=== PATIENT | female | born 1975 | race Caucasian/White ===

== ENCOUNTER 2017-03-20 02:41 | Inpatient (IN) | payer BC ==
--- NOTE | 2017-03-20 03:49 | PDOC ---
History of Present Illness - General History Source: Patient Exam Limitations: No Limitations - History of Present Illness Initial Comments: 03/20/17 04:38 The patient is a 42 year old female, with significant past medical history of cholecystectomy, who presents today complaining of fever, diarrhea, nausea, and vomiting x4 days. The patient states that the nausea and vomiting began on Tuesday, 4 days ago. She had multiple episodes of vomiting on Tuesday, which subsided on . She also reports multiple episodes of diarrhea accompanied by lower abdominal cramping. Her temperature was 103.5 prior to arrival to the emergency room. Denies hemoptysis. Denies urinary changes. Denies flank pain. Allergies:none reported Surgical Hx: cholecystectomy PCP- Dr. Delbert Galvan <Deirdre Campos - Last Filed: 03/20/17 04:38> <Marilyn Guthrie - Last Filed: 03/20/17 07:03> <Analia Antony - Last Filed: 03/20/17 11:32> - General Stated Complaint: ABDOMINAL PAIN Time Seen by Provider: 03/20/17 03:35 Past History <Deirdre Campos - Last Filed: 03/20/17 04:38> - Past Medical History Asthma: No Cancer: No Cardiac Disorders: No Diabetes: No HTN: No Seizures: No Thyroid Disease: No - Surgical History Cholecystectomy: Yes ('09) - Psycho/Social/Smoking Cessation Hx Anxiety: No Suicidal Ideation: No Smoking Status: No Smoking History: Never smoked Have you smoked in the past 12 months: No Number of Cigarettes Smoked Daily: 0 Hx Alcohol Use: No Drug/Substance Use Hx: No Substance Use Type: None Hx Substance Use Treatment: No <Marilyn Guthrie - Last Filed: 03/20/17 07:03> <Analia Antony - Last Filed: 03/20/17 11:32> - Past Medical History Allergies/Adverse Reactions: Allergies Allergy/AdvReac Type Severity Reaction Status Date / Time No Known Allergies Allergy Verified 03/20/17 03:50 Home Medications: Ambulatory Orders Omeprazole Magnesium [Prilosec (OTC)] 20 mg PO DAILY 11/13/14 Vit/Iron Fumarate/FA [ Tablet] 1 each PO DAILY 11/13/14 Review of Systems - Review of Systems Able to Perform ROS?: Yes Comments:: 03/20/17 04:39 GENERAL/CONSTITUTIONAL: +fever. No chills. No weakness. HEAD, EYES, EARS, NOSE AND THROAT: No change in vision. No ear pain or discharge. No sore throat. CARDIOVASCULAR: No chest pain or shortness of breath. RESPIRATORY: No cough, wheezing, or hemoptysis. GASTROINTESTINAL: +nausea, vomiting, lower abdominal cramping. GENITOURINARY: No dysuria, frequency, or change in urination. MUSCULOSKELETAL: No joint or muscle swelling or pain. No neck or back pain. SKIN: No rash NEUROLOGIC: No headache, vertigo, loss of consciousness, or change in strength/ sensation. ENDOCRINE: No increased thirst. No abnormal weight change. HEMATOLOGIC/LYMPHATIC: No anemia, easy bleeding, or history of blood clots. ALLERGIC/IMMUNOLOGIC: No hives or skin allergy. <Deirdre Campos - Last Filed: 03/20/17 04:38> *Physical Exam - Vital Signs Last Vital Signs Temp Pulse Resp BP Pulse Ox 99.8 F H 123 H 16 109/66 97 03/20/17 03:50 03/20/17 03:50 03/20/17 03:50 03/20/17 03:50 03/20/17 03:50 - Physical Exam Comments: 03/20/17 04:39 GENERAL: Awake, alert, and fully oriented, in no acute distress HEAD: No signs of trauma EYES: PERRLA, EOMI, sclera anicteric, conjunctiva clear ENT: Auricles normal inspection, hearing grossly normal, nares patent, oropharynx clear without exudates. Dry mucosa NECK: Normal ROM, supple, no lymphadenopathy, JVD, or masses LUNGS: Breath sounds equal, clear to auscultation bilaterally. No wheezes, and no crackles HEART: Regular rate and rhythm, normal S1 and S2, no murmurs, rubs or gallops ABDOMEN: Soft, nontender, normoactive bowel sounds. No guarding, no rebound. No masses EXTREMITIES: Normal range of motion, no edema. No clubbing or cyanosis. No cords, erythema, or tenderness NEUROLOGICAL: Cranial nerves II through XII grossly intact. Normal speech, normal gait SKIN: Warm, Dry, normal turgor, no rashes or lesions noted. <Deirdre Campos - Last Filed: 03/20/17 04:38> - Vital Signs Last Vital Signs Temp Pulse Resp BP Pulse Ox 99.8 F H 123 H 16 109/66 97 03/20/17 03:50 03/20/17 03:50 03/20/17 03:50 03/20/17 03:50 03/20/17 03:50 <Analia Antony - Last Filed: 03/20/17 11:32> ED Treatment Course - LABORATORY CBC & Chemistry Diagram: 03/20/17 04:57 03/20/17 04:57 <Marilyn Guthrie - Last Filed: 03/20/17 07:03> - LABORATORY CBC & Chemistry Diagram: 03/20/17 04:57 03/20/17 04:57 - ADDITIONAL ORDERS Additional order review: Laboratory Results 03/20/17 03/20/17 03/20/17 07:05 04:57 04:57 Sodium 140 Potassium 3.5 Chloride 104 Carbon Dioxide 24 Anion Gap 12 BUN 9 D Creatinine 0.8 D Creat Clearance w eGFR > 60 Random Glucose 121 H Calcium 8.2 L Total Bilirubin 0.5 D AST 20 D ALT 31 D Alkaline Phosphatase 121 H D Total Protein 7.3 D Albumin 3.2 L D Total Amylase 46 Lipase 104 Urine Color Ltyellow Urine Appearance Slcloudy Urine pH 7.0 Urine Protein 1+ H Urine Glucose (UA) Negative Urine Ketones Negative Urine Blood 3+ H Urine Nitrite Negative Urine Bilirubin Negative Urine Urobilinogen Negative Ur Leukocyte Esterase 2+ H D Urine RBC 10 Urine WBC 19 Ur Epithelial Cells Few Urine Bacteria Few Urine HCG, Qual Negative 03/20/17 04:57 RBC 4.64 D MCV 82.6 MCHC 32.3 RDW 13.7 MPV 8.8 Neutrophils % 85.1 H Lymphocytes % 8.7 D Monocytes % 5.5 Eosinophils % 0.2 D Basophils % 0.5 <Analia Antony - Last Filed: 03/20/17 11:32> Medical Decision Making - Medical Decision Making 03/20/17 07:03 Pt comes with vomiting and diarrhea on Tue and . She states that she had a large BM on Tue and since then she has been constipated and she has abdominal pain. Pt comes to the ER with a fever. She will have labs and CT scan and UA. Pt states that due to her vomiting, she has been unable to take her OCPs and so she has some vaginal spotting, but states that she is not . Urine HCG is pending. Once urine preg test is back, pt can go to CT scan. She likely has colitis. She will require Levaquin, but that too will be started once her preg test is back. <Marilyn Guthrie - Last Filed: 03/20/17 07:03> - Medical Decision Making 03/20/17 09:05 CT results reviewed, discussed with patient. She agrees to inpatient admission for management of diverticulitis with abscess. She requests Dr. Doll's group for surgery consultation. I have ordered levaquin and flagyl, IVF. I will keep her NPO pending surgical evaluation. Her fever has returned, and she also c/o of headache. I will give IV tylenol. I answered questions for her and her in terms of management and plan. I explained that surgery will give more definitive plan. For now it is NPO with IV abx and fever management. 03/20/17 09:34 Case d/w Dr. Renee, covering Dr. Doll for surgery. Will evaluate. <Analia Antony - Last Filed: 03/20/17 11:32> *DC/Admit/Observation/Transfer - Attestations Scribe Attestion: 03/20/17 04:40 Documentation prepared by ELYSSA Alex, acting as director global medical affairs for Marilyn Guthrie MD. <Deirdre Campos - Last Filed: 03/20/17 04:38> <Marilyn Guthrie - Last Filed: 03/20/17 07:03> - Discharge Dispostion Admit: Yes <Analia Antony - Last Filed: 03/20/17 11:32> Diagnosis at time of Disposition: Diverticulitis of intestine with abscess Qualifiers: Diverticulitis site: large intestine Diverticulitis bleeding: without bleeding Qualified Code(s): K57.20 - Diverticulitis of large intestine with perforation and abscess without bleeding - Discharge Dispostion Condition at time of disposition: Guarded - Referrals
[2017-03-20 05:04] LABS: BASOPHIL 0.5 % (0-2.0); EOSINOPHIL 0.2 % (0-4.5); MCH 26.7 pg (25.7-33.7); MCHC 32.3 g/dl (32.0-36.0); MEAN CELL VOLUME 82.6 fl (80-96); MEAN PLT VOLUME 8.8 fl (7.5-11.1); NEUTROPHILS 85.1 % (42.8-82.8); PLATELET COUNT 290 K/MM3 (134-434); RDW 13.7 % (11.6-15.6); WHITE BLOOD COUNT 14.9 K/mm3 (4.0-10.0)
[2017-03-20 05:05] LABS: URINE APPEARANCE SLCLOUDY; URINE BILIRUBIN NEGATIVE (NEGATIVE); URINE COLOR LTYELLOW; URINE GLUCOSE (UA) NEGATIVE (NEGATIVE); URINE KETONE NEGATIVE (NEGATIVE); URINE NITRITE NEGATIVE (NEGATIVE); URINE UROBILINOGEN NEGATIVE E.U./dl (0.2-1.0)
[2017-03-20 05:06] LABS: URINE BLOOD 3+ (NEGATIVE); URINE LEUK ESTERASE 2+ (NEGATIVE); URINE PROTEIN 1+ (NEGATIVE)
[2017-03-20 05:23] LABS: URINE BACTERIA FEW /hpf (NONE SEEN); URINE RBC 10 /hpf (0-3); URINE WBC 19 /hpf (3-5)
[2017-03-20 06:28] LABS: GLUCOSE,RANDOM 121 mg/dL (74-106)
[2017-03-20 06:29] LABS: ANION GAP 12 (8-16); CALCIUM 8.2 mg/dL (8.5-10.1); CO2 24 mmol/L (21-32); CREATININE 0.8 mg/dL (0.55-1.02)
[2017-03-20 06:30] LABS: ALBUMIN 3.2 g/dl (3.4-5.0); ALK PHOS 121 U/L (45-117); BILIRUBIN,TOTAL 0.5 mg/dL (0.2-1.0); SGOT/AST 20 U/L (15-37); SGPT/ALT 31 U/L (12-78); TOT PROT 7.3 g/dl (6.4-8.2)
[2017-03-20 06:31] LABS: AMYLASE 46 U/L (25-115)
[2017-03-20] MEDS ORDERED: METRONIDAZOLE 500 MG PREMIXED 100 ML IVPB ONE ×2 (09:05→09:19)
[2017-03-20] MEDS ORDERED: LEVOFLOXACIN 750 MG IVPB 150 ML IVPB ONE ×2 (09:19→09:20)
[2017-03-20] MEDS ORDERED: ACETAMINOPHEN INJECTION 100 ML IVPB ONE (09:26)
[2017-03-20] MEDS ORDERED: ACETAMINOPHEN 1000 MG/100 ML VIAL (NON FORMULARY) IVPB ONE (09:28)
[2017-03-20] MEDS ORDERED: SODIUM CHLORIDE 1,000 ML IV SCH (09:30)
[2017-03-20] MEDS: LEVOFLOXACIN 750 MG IVPB 150 ML IVPB ONE ×2 (09:50→10:13)
[2017-03-20] MEDS ORDERED: ONDANSETRON 4 MG/2 ML VIAL IVPB PRN (10:52)
[2017-03-20 11:30] VITALS: BMI 38.8
[2017-03-20] MEDS: SODIUM CHLORIDE 1,000 ML IV SCH (11:33)
[2017-03-20] MEDS ORDERED: ACETAMINOPHEN 325 MG TABLET (FP) ONE (14:46)
[2017-03-20] MEDS: ACETAMINOPHEN 325 MG TABLET (FP) PO PRN ×2 (14:48→22:06)
--- NOTE | 2017-03-20 16:21 | CONS ---
DATE OF CONSULTATION: 03/20/2017 REQUESTING PHYSICIAN: Emergency room physician. RESPONDING PHYSICIAN: Henry Renee MD REASON FOR CONSULTATION: Complicated diverticulitis. HISTORY: This is a 42-year-old woman who apparently has been home and ill for the past 3 or 4 days with lower crampy abdominal pain associated with nausea, vomiting, and diarrhea. She has also been having fever at home. Temperature max at home was 103.5. With that history she has come to the emergency room for evaluation. Here in the emergency room the patient was found to have lower abdominal pain. CT scan of the abdomen and pelvis completed this morning demonstrates evidence of acute sigmoid diverticulitis in the face of diverticulosis. There is pericolonic edema as well as a 5 x 3 x 3 cm pelvic abscess. There is no free perforation and there are no other intraabdominal findings noted. According to the patient she has never had diverticulitis in the past. She has not been known to have diverticulosis. She has had no similar episodes of abdominal pain. PAST MEDICAL HISTORY: The patients past medical history is essentially nil except for a depressive disorder. No history of hypertension, morbid obesity, diabetes , respiratory, renal or hepatic insufficiency. PAST SURGICAL HISTORY: Significant for cholecystectomy. ALLERGIES: None known. REGULAR MEDICATIONS: Lexapro as well as control pills. SOCIAL HISTORY: Negative tobacco, negative alcohol. FAMILY HISTORY: Essentially nil for any significant disease. PHYSICAL EXAMINATION: General: Awake and alert in no acute distress moving about rather freely. Vital signs: Stable with a T-max of 102.7 here in the emergency room. Abdomen: Soft with rather well localized tenderness in the suprapubic region on deep palpation. No palpable masses. LABORATORY DATA: White count 14.9 with a hemoglobin and hematocrit of 12.4 and 38.3 respectively. Lytes are within normal limits. IMPRESSION: Acute sigmoid diverticulitis with a 5-cm pelvic abscess ( complicated diverticulitis) hemodynamically stable. PLAN: Suggest IV antibiotics as already instituted. The patient has received Levaquin and Flagyl and it would be appropriate management. Would continue NPO at this juncture obviously. Interventional radiology to review CT scan in a.m. for possible percutaneous management. Will continue to follow and advise. HENRY RENEE M.D. [id number] cc: Delbert Galvan MD MTDD
--- NOTE | 2017-03-20 17:25 | HP ---
Admitting History and Physical - Primary Care Physician PCP: Delbert Galvan - Admission Chief Complaint: abdominal pain History of Present Illness: 42 year female with no significant past medical history presents to the ER with c/o fever, nausea, vomiting, diarrhea x4 days. The patient states that the nausea and vomiting began on Tuesday, 4 days ago. She had multiple episodes of vomiting on Tuesday, which subsided on . She also reports multiple episodes of diarrhea accompanied by lower abdominal cramping. Her temperature was 103.5 prior to arrival to the emergency room. Denies chest pain, shortness of breath, palpitation or dizziness. History Source: Patient Limitations to Obtaining History: No Limitations - Past Medical History ...LMP: 03/06/17 ...: No - Past Surgical History Past Surgical History: Yes: Cholecystectomy - Smoking History Smoking history: Never smoked Have you smoked in the past 12 months: No Aproximately how many cigarettes per day: 0 - Alcohol/Substance Use Hx Alcohol Use: No - Social History History of Recent Travel: No Home Medications - Allergies Allergies/Adverse Reactions: Allergies Allergy/AdvReac Type Severity Reaction Status Date / Time No Known Allergies Allergy Verified 03/20/17 03:50 - Home Medications Home Medications: Ambulatory Orders Escitalopram Oxalate [Lexapro -] 10 mg PO DAILY 03/20/17 Norethindrone AC-Eth Estradiol [Junel] 1 each PO DAILY 03/20/17 Review of Systems - Review of Systems Constitutional: reports: Fever, Loss of Appetite, Weakness Eyes: reports: No Symptoms HENT: reports: No Symptoms Neck: reports: No Symptoms Cardiovascular: reports: No Symptoms Respiratory: reports: No Symptoms Gastrointestinal: reports: Abdominal Pain, Nausea, Vomiting Genitourinary: reports: No Symptoms Breasts: reports: No Symptoms Reported Musculoskeletal: reports: No Symptoms Integumentary: reports: No Symptoms Neurological: reports: No Symptoms Endocrine: reports: No Symptoms Hematology/Lymphatic: reports: No Symptoms Psychiatric: reports: No Symptoms Physical Examination Vital Signs: Vital Signs Temperature 102.0 F H 03/20/17 15:15 Pulse Rate 100 H 03/20/17 15:15 Respiratory Rate 18 03/20/17 15:15 Blood Pressure 122/70 03/20/17 15:15 O2 Sat by Pulse Oximetry (%) 98 03/20/17 12:05 Constitutional: Yes: Mild Distress Eyes: Yes: Conjunctiva Clear, PERRL HENT: Yes: Atraumatic, Normocephalic Neck: Yes: Supple, Trachea Midline Cardiovascular: Yes: Regular Rate and Rhythm, S1 Respiratory: Yes: Regular, CTA Bilaterally Gastrointestinal: Yes: Normal Bowel Sounds, Soft, Tenderness (left lower quadrant) ...Rectal Exam: Yes: Deferred Musculoskeletal: Yes: WNL Extremities: Yes: WNL Edema: No Peripheral Pulses WNL: Yes Neurological: Yes: Alert, Oriented ...Motor Strength: WNL Psychiatric: Yes: Alert, Oriented Imaging - Results Cat Scan: Report Reviewed Problem List - Problems (1) Diverticulitis of intestine with abscess Assessment/Plan: Acute sigmoid diverticulitis with abscess. NPO, IV fluids, IV antibiotics, pain management. Surgery consult reviewed. Continue current management. Code(s): K57.80 - DVTRCLI OF INTEST, PART UNSP, W PERF AND ABSCESS W/O BLEED Qualifiers: Diverticulitis site: large intestine Diverticulitis bleeding: without bleeding Qualified Code(s): K57.20 - Diverticulitis of large intestine with perforation and abscess without bleeding
[2017-03-20] MEDS: METRONIDAZOLE 500 MG PREMIXED 100 ML IVPB SCH (18:06)
[2017-03-21] MEDS: SODIUM CHLORIDE 1,000 ML IV SCH ×3 (01:12→22:30)
[2017-03-21] MEDS: METRONIDAZOLE 500 MG PREMIXED 100 ML IVPB SCH ×3 (01:12→18:10)
[2017-03-21] MEDS: morphine CARPU-JECT 2 MG/1 ML DISP.SYRIN IVPUSH PRN ×2 (06:06→22:21)
[2017-03-21 07:46] LABS: BASOPHIL 0.4 % (0-2.0); EOSINOPHIL 0.7 % (0-4.5); MCH 27.3 pg (25.7-33.7); MCHC 32.9 g/dl (32.0-36.0); MEAN CELL VOLUME 82.8 fl (80-96); MEAN PLT VOLUME 8.7 fl (7.5-11.1); NEUTROPHILS 79.1 % (42.8-82.8); PLATELET COUNT 270 K/MM3 (134-434); WHITE BLOOD COUNT 11.4 K/mm3 (4.0-10.0)
[2017-03-21 08:02] LABS: ALBUMIN 2.6 g/dl (3.4-5.0); ANION GAP 12 (8-16); BILIRUBIN,TOTAL 0.6 mg/dL (0.2-1.0); CALCIUM 8.1 mg/dL (8.5-10.1); CO2 23 mmol/L (21-32); CREATININE 0.5 mg/dL (0.55-1.02); GLUCOSE,RANDOM 90 mg/dL (74-106); SGOT/AST 16 U/L (15-37); SGPT/ALT 27 U/L (12-78); TOT PROT 6.3 g/dl (6.4-8.2)
[2017-03-21 08:03] LABS: ALK PHOS 120 U/L (45-117)
[2017-03-21] MEDS ORDERED: LEVOFLOXACIN 500 MG IVPB 100 ML IVPB SCH (10:00)
[2017-03-21] MEDS ORDERED: ACETAMINOPHEN 1000 MG/100 ML VIAL (NON FORMULARY) IVPB ONE (11:15)
--- NOTE | 2017-03-21 11:39 | PN ---
Progress Note (short form) - Note Progress Note: ID consult dictated diverticulitis with abscess seen by surgery for IR drainage rocephin/flagyl f/u cultures no history of resistant organisms Problem List - Problems (1) Diverticulitis of intestine with abscess Code(s): K57.80 - DVTRCLI OF INTEST, PART UNSP, W PERF AND ABSCESS W/O BLEED Qualifiers: Diverticulitis site: large intestine Diverticulitis bleeding: without bleeding Qualified Code(s): K57.20 - Diverticulitis of large intestine with perforation and abscess without bleeding
--- NOTE | 2017-03-21 12:15 | PN ---
Physical Exam: SUBJECTIVE: Patient seen and examined. States her abdominal pain is improving, feels that her mouth is very dry; asking for ice chips OBJECTIVE: Fever of 102F today ID consulted for possible change of IV antibiotics given fever Keep NPO, ice chips prn Vital Signs Period Temp Pulse Resp BP Sys/Robles Pulse Ox Last 24 Hr 99.1 F-102.0 F 95-100 18-20 118-122/56-71 98-100 GENERAL: The patient is awake, alert, and fully oriented, in no acute distress. HEAD: Normal with no signs of trauma. EYES: PERRL, extraocular movements intact, sclera anicteric, conjunctiva clear. No ptosis. ENT: Ears normal, nares patent, oropharynx clear without exudates, moist mucous membranes. NECK: Trachea midline, full range of motion, supple. LUNGS: Breath sounds equal, clear to auscultation bilaterally, no wheezes, no crackles, no accessory muscle use. HEART: Regular rate and rhythm, S1, S2 without murmur, rub or gallop. ABDOMEN: Soft,tenderness of LL,+bowel sounds, non distended EXTREMITIES: 2+ pulses, warm, well-perfused, no edema. NEUROLOGICAL: Normal speech PSYCH: Normal mood, normal affect. SKIN: Warm, dry, normal turgor, no rashes or lesions noted Laboratory Results - last 24 hr 03/21/17 03/21/17 05:35 05:35 WBC 11.4 H RBC 4.14 Hgb 11.3 Hct 34.3 MCV 82.8 MCHC 32.9 RDW 14.0 Plt Count 270 MPV 8.7 Neutrophils % 79.1 Lymphocytes % 11.4 D Monocytes % 8.4 Eosinophils % 0.7 D Basophils % 0.4 Sodium 143 Potassium 3.3 L Chloride 108 H Carbon Dioxide 23 Anion Gap 12 BUN 7 D Creatinine 0.5 L D Creat Clearance w eGFR > 60 Random Glucose 90 D Calcium 8.1 L Total Bilirubin 0.6 AST 16 ALT 27 Alkaline Phosphatase 120 H Total Protein 6.3 L Albumin 2.6 L Active Medications Generic Name Dose Route Start Last Admin Trade Name Freq PRN Reason Stop Dose Admin Acetaminophen 650 mg 03/20/17 10:52 03/20/17 22:06 Tylenol - PO 650 mg Q6H PRN Administration FEVER OR PAIN Ceftriaxone Sodium 2 gm 03/22/17 10:00 Rocephin 2gm Ivpb (Pre-Docked) IVPB DAILY JEM Protocol Metronidazole 100 mls @ 100 mls/hr 03/20/17 18:00 03/21/17 09:30 Flagyl 500mg Premixed Ivpb - IVPB 100 mls/hr Q8H-IV JEM Administration Sodium Chloride 1,000 mls @ 75 mls/hr 03/20/17 11:00 03/21/17 01:12 Normal Saline - IV 75 mls/hr ASDIR JEM Administration Pantoprazole Sodium 100 mls @ 200 mls/hr 03/21/17 10:00 Protonix 40mg Ivpb (Pre-Docked) IVPB DAILY JEM Morphine Sulfate 1 mg 03/20/17 10:56 03/21/17 06:06 Morphine Injection - IVPUSH 1 mg Q4H PRN Administration PAIN Ondansetron HCl 4 mg 03/20/17 10:52 03/20/17 19:35 Zofran Injection IVPB 4 mg Q6H PRN Administration NAUSEA ASSESSMENT/PLAN: Patient is a 42 year old female with no significant past medical history who presented to the ER on 03/20/2017 with symptoms of fever, nausea, vomiting, diarrhea x 4 days. She had multiple episodes of vomiting on Tuesday, which subsided on . She also reports multiple episodes of diarrhea accompanied by lower abdominal cramping. Denies chest pain, shortness of breath , palpitation or dizziness. On admission, her WBC was noted to be 14.9, with a fever of 102.7F, tachycardia @123. A CT scan of abdomen and pelvis showed acute sigmoid diverticulitis with an associated 5.x3x3cm abscess within the cul de sac. ID: Sepsis: Diverticulitis of intestine with abscess-sigmoid diverticulitis - acute Assessment/Plan: on admission fever 102.7, WBC 14.9, tachycardia [address] scan of abdomen and pelvis showed acute sigmoid diverticulitis with an associated 5.x3x3cm abscess within the cul de sac. Keep NPO, IVF with NS @75cc/hr Pain management with morphine Having fevers today, ID consulted Started on Rocephin, Levaquin d/alex Also on Flagyl Surgery consulted, for IR drainage today Can have ice chips prn repeat blood cultures pending F.E.N. Fluids: NS @75cc/hr Electrolytes: hypokalemia repleted Nutrition: NPO, ice chips OK Prophylaxis: DVT: SCDs, ambulation, Lovenox 40mg GI: Protonix ivpb Disposition: Requires inpatient hospitalization. Full Code. Visit type - Emergency Visit Emergency Visit: Yes ED Registration Date: 03/20/17 Care time: The patient presented to the Emergency Department on the above date and was hospitalized for further evaluation of their emergent condition. - New Patient This patient is new to me today: Yes Date on this admission: 03/21/17 - Critical Care Critical Care patient: No - Discharge Referral Referred to [facility] No
[2017-03-21 12:50] LABS: INR 1.28 (0.82-1.09); PROTHROMBIN TIME (PATIENT) 14.1 SEC (9.98-11.88)
[2017-03-21] MEDS: PANTOPRAZOLE SODIUM 100 ML IVPB SCH (13:29)
--- NOTE | 2017-03-21 13:42 | PN ---
Progress Note (short form) - Note Progress Note: surgery Pt seen and examined. feels better on abx. abd- soft, minimal supra-pubic tenderness, Plan- complicated diverticulitis >>> perforated malignancy. pt wants conservative management. for IR drainage today. cont npo. cont iv abx. will follow.
--- NOTE | 2017-03-21 14:21 | EKG ---
Test Reason : Blood Pressure : / mmHG Vent. Rate : 105 BPM Atrial Rate : 105 BPM P-R Int : 174 ms QRS Dur : 098 ms QT Int : 322 ms P-R-T Axes : 017 003 026 degrees QTc Int : 425 ms SINUS TACHYCARDIA OTHERWISE NORMAL ECG NO PREVIOUS ECGS AVAILABLE Confirmed by OMEGA JIMÉNEZ MD ([id number]) on 03/21/2017 2:21:31 PM Referred By: Confirmed By:OMEGA JIMÉNEZ MD
[2017-03-21] MEDS ORDERED: KCL 10 MEQ IVPB 100 ML IVPB SCH (15:30)
--- NOTE | 2017-03-21 15:51 | PN ---
Physical Exam: SUBJECTIVE: Patient seen and examined OBJECTIVE: Vital Signs Period Temp Pulse Resp BP Sys/Robles Pulse Ox Last 24 Hr 99.1 F-102 F 81-99 13-20 118-128/56-82 98-100 GENERAL: The patient is awake, alert, and fully oriented, in no acute distress. HEAD: Normal with no signs of trauma. EYES: PERRL, extraocular movements intact, sclera anicteric, conjunctiva clear. No ptosis. ENT: Ears normal, nares patent, oropharynx clear without exudates, moist mucous membranes. NECK: Trachea midline, full range of motion, supple. LUNGS: Breath sounds equal, clear to auscultation bilaterally, no wheezes, no crackles, no accessory muscle use. HEART: Regular rate and rhythm, S1, S2 without murmur, rub or gallop. ABDOMEN: Soft, nontender, nondistended, normoactive bowel sounds, no guarding, no rebound, no hepatosplenomegaly, no masses. EXTREMITIES: 2+ pulses, warm, well-perfused, no edema. NEUROLOGICAL: Cranial nerves II through XII grossly intact. Normal speech, gait not observed. PSYCH: Normal mood, normal affect. SKIN: Warm, dry, normal turgor, no rashes or lesions noted Laboratory Results - last 24 hr 03/21/17 03/21/17 03/21/17 05:35 05:35 12:15 WBC 11.4 H RBC 4.14 Hgb 11.3 Hct 34.3 MCV 82.8 MCHC 32.9 RDW 14.0 Plt Count 270 MPV 8.7 Neutrophils % 79.1 Lymphocytes % 11.4 D Monocytes % 8.4 Eosinophils % 0.7 D Basophils % 0.4 INR 1.28 H D Sodium 143 Potassium 3.3 L Chloride 108 H Carbon Dioxide 23 Anion Gap 12 BUN 7 D Creatinine 0.5 L D Creat Clearance w eGFR > 60 Random Glucose 90 D Calcium 8.1 L Total Bilirubin 0.6 AST 16 ALT 27 Alkaline Phosphatase 120 H Total Protein 6.3 L Albumin 2.6 L Active Medications Generic Name Dose Route Start Last Admin Trade Name Freq PRN Reason Stop Dose Admin Acetaminophen 650 mg 03/20/17 10:52 03/20/17 22:06 Tylenol - PO 650 mg Q6H PRN Administration FEVER OR PAIN Ceftriaxone Sodium 2 gm 03/22/17 10:00 Rocephin 2gm Ivpb (Pre-Docked) IVPB DAILY JEM Protocol Metronidazole 100 mls @ 100 mls/hr 03/20/17 18:00 03/21/17 09:30 Flagyl 500mg Premixed Ivpb - IVPB 100 mls/hr Q8H-IV JEM Administration Sodium Chloride 1,000 mls @ 75 mls/hr 03/20/17 11:00 03/21/17 01:12 Normal Saline - IV 75 mls/hr ASDIR JEM Administration Pantoprazole Sodium 100 mls @ 200 mls/hr 03/21/17 10:00 03/21/17 13:29 Protonix 40mg Ivpb (Pre-Docked) IVPB 200 mls/hr DAILY JEM Administration Potassium Chloride 100 mls @ 100 mls/hr 03/21/17 15:30 Potassium Chloride 10 Meq Premix Ivpb - IVPB 03/21/17 17:29 Q60M JEM Morphine Sulfate 1 mg 03/20/17 10:56 03/21/17 06:06 Morphine Injection - IVPUSH 1 mg Q4H PRN Administration PAIN Ondansetron HCl 4 mg 03/20/17 10:52 03/20/17 19:35 Zofran Injection IVPB 4 mg Q6H PRN Administration NAUSEA ASSESSMENT/PLAN:
[2017-03-21] MEDS: ENOXAPARIN NA (PORCINE) 40 MG/0.4 ML DISP.SYRIN SQ SCH (22:30)
[2017-03-21] MEDS: KCL 10 MEQ IVPB 100 ML IVPB SCH (22:46)
[2017-03-22] MEDS: METRONIDAZOLE 500 MG PREMIXED 100 ML IVPB SCH ×3 (01:31→17:16)
[2017-03-22] MEDS: KCL 10 MEQ IVPB 100 ML IVPB SCH (01:31)
--- NOTE | 2017-03-22 01:41 | CONS ---
DATE OF CONSULTATION: DATE OF DICTATION: 03/21/2017 INFECTIOUS DISEASE CONSULTATION REQUESTING PHYSICIAN: Nehemiah Garza M.D. CONSULTING PHYSICIAN: Yvonne Gerber M.D. HISTORY OF PRESENT ILLNESS: This is a 42-year-old woman, she lives at home with her family. On Tuesday she started having intermittent abdominal pain accompanied by vomiting for less than 24 hours and intermittent nonbloody diarrhea. The vomiting subsided by . By Tuesday she was able to have liquids and eat small meals. She continued to have intermittent abdominal pain as well as diarrhea. On Tuesday night, she had a fever or 100.8. She continues to have abdominal discomfort all day on Tuesday. Tuesday night she had a fever or 103.5, and she came to the emergency room early Tuesday morning. She has no hematemesis or hemoptysis. Her vomiting had resolved by night. She had no dysuria, and had a CAT scan done in the emergency room that showed acute sigmoid diverticulitis with an associated abscess. I am asked to see her for antibiotic recommendation. She was given Levaquin and Flagyl in the ER. ALLERGIES: She has no known drug allergies. MEDICATION: Her medications at home include control pills and lexapro. PAST MEDICAL HISTORY: Notable for kidney stones in 2012. SURGICAL HISTORY: Notable for cholecystectomy in 2007 and a section in 2014, all of which were uneventful. FAMILY HISTORY: Notable for diverticulitis. There is no history of colon cancer, but her grandparents, her mother has a colostomy, and she has an uncle gets intermittent flares of diverticulitis. SOCIAL HISTORY: There is no history of any cigarette use. There is no history of any alcohol use. He has not traveled. There is no history of any travel. 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 She has a 2-year-old who is well. She has no sick contacts. REVIEW OF SYSTEMS: No respiratory complaints. She has no cough. Her nausea and vomiting have resolved. She still is having intermittent lower abdominal pain, and she has an intermittent fever. PHYSICAL EXAMINATION: Vital signs: Her T-max since admission is 102.7, current temperature is 100.4, pulse of 95, respiratory rate 20, blood pressure 122/71. She is saturating 98% on room air. HEENT: Normocephalic. Eyes are anicteric. Neck: Supple. Lungs: Clear to auscultation. Heart: Regular rate and rhythm. Abdomen: Soft. She has diminished bowel sounds. She has left lower quadrant discomfort on palpation. She has gotten morphine and her abdomen is quite soft. There is no distention. Extremities: Without edema. LABORATORY: White count is 11.4, hemoglobin 11.3, platelets 270. BUN and creatinine are 7 and 0.5 with an alkaline phosphatase of 120, and blood cultures are pending. CAT scan findings are as previously stated. IMPRESSION: In summary, this is a 42-year-old woman with diverticulitis with acute sigmoid diverticulitis with a pelvic abscess. She has been seen by surgery, and the plan is for interventional radiation drainage. Will treat her with ceftriaxone and Flagyl and follow up her cultures. She has no history of prior resistant organisms, and no history of recent antibiotics. She cannot recall in the last 6 months taking any oral antibiotics. Further recommendations to follow based on her clinical course. Diallo [id number]
[2017-03-22] MEDS: ACETAMINOPHEN 325 MG TABLET (FP) PO PRN (06:42)
[2017-03-22 08:20] LABS: BASOPHIL 0.3 % (0-2.0); EOSINOPHIL 0.2 % (0-4.5); MCHC 32.7 g/dl (32.0-36.0); MEAN CELL VOLUME 82.7 fl (80-96); MEAN PLT VOLUME 8.2 fl (7.5-11.1); NEUTROPHILS 83.9 % (42.8-82.8); PLATELET COUNT 265 K/MM3 (134-434); RDW 14.2 % (11.6-15.6); WHITE BLOOD COUNT 12.5 K/mm3 (4.0-10.0)
[2017-03-22] MEDS: PANTOPRAZOLE SODIUM 100 ML IVPB SCH (11:12)
[2017-03-22] MEDS: ENOXAPARIN NA (PORCINE) 40 MG/0.4 ML DISP.SYRIN SQ SCH (11:12)
[2017-03-22 11:31] LABS: ALBUMIN 2.4 g/dl (3.4-5.0); ANION GAP 14 (8-16); CALCIUM 8.1 mg/dL (8.5-10.1); CO2 21 mmol/L (21-32); CREATININE 0.5 mg/dL (0.55-1.02); GLUCOSE,RANDOM 72 mg/dL (74-106); SGOT/AST 24 U/L (15-37); SGPT/ALT 38 U/L (12-78)
[2017-03-22 11:33] LABS: ALK PHOS 182 U/L (45-117); BILIRUBIN,TOTAL 0.5 mg/dL (0.2-1.0)
[2017-03-22] MEDS: cefTRIAXone 2 GM/100 ML BAG (PRE-DOCKED) IVPB SCH (12:12)
[2017-03-22] MEDS ORDERED: KCL 10 MEQ IVPB 100 ML IVPB SCH ×3 (12:15→22:00)
[2017-03-22] MEDS: SODIUM CHLORIDE 1,000 ML IV SCH (13:09)
--- NOTE | 2017-03-22 14:20 | PN ---
Progress Note (short form) - Note Progress Note: still some fever drainage catheter placed by IR yesterday still npo Vital Signs Period Temp Pulse Resp BP Sys/Robles Pulse Ox Last 24 Hr 98.8 F-100.8 F 81-111 13-20 120-134/57-82 100-100 cor-rrr lungs clear abd soft,+SEBASTIAN drain ext no edema CBC, BMP 03/22/17 07:35 03/22/17 07:35 Microbiology 03/21/17 10:55 Blood - Peripheral Venous Blood Culture - Preliminary NO GROWTH OBTAINED AFTER 24 HOURS, INCUBATION TO CONTINUE FOR 4 DAYS. 03/21/17 10:55 Blood - Peripheral Venous Blood Culture - Preliminary NO GROWTH OBTAINED AFTER 24 HOURS, INCUBATION TO CONTINUE FOR 4 DAYS. 03/20/17 09:23 Blood - Peripheral Venous Blood Culture - Preliminary NO GROWTH OBTAINED AFTER 48 HOURS, INCUBATION TO CONTINUE FOR 3 DAYS. 03/20/17 09:23 Blood - Peripheral Venous Blood Culture - Preliminary NO GROWTH OBTAINED AFTER 48 HOURS, INCUBATION TO CONTINUE FOR 3 DAYS. Current Medications Generic Name Dose Route Start Last Admin Trade Name Freq PRN Reason Stop Dose Admin Acetaminophen 650 mg 03/20/17 10:52 03/22/17 06:42 Tylenol - PO 650 mg Q6H PRN Administration FEVER OR PAIN Ceftriaxone Sodium 2 gm 03/22/17 10:00 03/22/17 12:12 Rocephin 2gm Ivpb (Pre-Docked) IVPB 2 gm DAILY JEM Administration Protocol Enoxaparin Sodium 40 mg 03/21/17 21:00 03/22/17 11:12 Lovenox - SQ 40 mg DAILY JEM Administration Metronidazole 100 mls @ 100 mls/hr 03/20/17 18:00 03/22/17 09:17 Flagyl 500mg Premixed Ivpb - IVPB 100 mls/hr Q8H-IV JEM Administration Sodium Chloride 1,000 mls @ 75 mls/hr 03/20/17 11:00 03/22/17 13:09 Normal Saline - IV Not Given ASDIR JEM Pantoprazole Sodium 100 mls @ 200 mls/hr 03/21/17 10:00 03/22/17 11:12 Protonix 40mg Ivpb (Pre-Docked) IVPB 200 mls/hr DAILY JEM Administration Morphine Sulfate 1 mg 03/20/17 10:56 03/21/17 22:21 Morphine Injection - IVPUSH 1 mg Q4H PRN Administration PAIN Ondansetron HCl 4 mg 03/20/17 10:52 03/20/17 19:35 Zofran Injection IVPB 4 mg Q6H PRN Administration NAUSEA a/p diverticulitis with abscess s/p IR drainage yesterday f/u cultures continue rocephin/flagyl Problem List - Problems (1) Diverticulitis of intestine with abscess Code(s): K57.80 - DVTRCLI OF INTEST, PART UNSP, W PERF AND ABSCESS W/O BLEED Qualifiers: Diverticulitis site: large intestine Diverticulitis bleeding: without bleeding Qualified Code(s): K57.20 - Diverticulitis of large intestine with perforation and abscess without bleeding
--- NOTE | 2017-03-22 15:24 | PN ---
Physical Exam: SUBJECTIVE: Patient seen and examined, in no acute distress. She denies pain, verbalizes intermittent headaches. OBJECTIVE: Fever curve improving S/P IR drainage with SEBASTIAN tube placement to gravity on 03/21/2017 NPO for intermittent abdominal pain, Ice chips prn Trial of clears tomorrow if patient able to tolerate Vital Signs Period Temp Pulse Resp BP Sys/Roblse Pulse Ox Last 24 Hr 98.7 F-100.8 F 101-111 20-22 120-134/57-81 94-100 GENERAL: The patient is awake, alert, and fully oriented, in no acute distress. HEAD: Normal with no signs of trauma. EYES: PERRL, extraocular movements intact, sclera anicteric, conjunctiva clear. No ptosis. ENT: Ears normal, nares patent, oropharynx clear without exudates, moist mucous membranes. NECK: Trachea midline, full range of motion, supple. LUNGS: Breath sounds equal, clear to auscultation bilaterally, no wheezes, no crackles, no accessory muscle use. HEART: Regular rate and rhythm, S1, S2 without murmur, rub or gallop. ABDOMEN: Soft,tenderness of LL,+bowel sounds, non distended EXTREMITIES: 2+ pulses, warm, well-perfused, no edema. NEUROLOGICAL: Normal speech PSYCH: Normal mood, normal affect. SKIN: SEBASTIAN drain to gravity on posterior aspect of right buttocks placed on Laboratory Results - last 24 hr 03/22/17 03/22/17 07:35 07:35 WBC 12.5 H RBC 4.07 Hgb 11.0 Hct 33.7 MCV 82.7 MCHC 32.7 RDW 14.2 Plt Count 265 MPV 8.2 Neutrophils % 83.9 H Lymphocytes % 8.9 D Monocytes % 6.7 Eosinophils % 0.2 Basophils % 0.3 Sodium 143 Potassium 3.4 L Chloride 108 H Carbon Dioxide 21 Anion Gap 14 BUN 8 Creatinine 0.5 L Creat Clearance w eGFR > 60 Random Glucose 72 L Calcium 8.1 L Total Bilirubin 0.5 AST 24 D ALT 38 D Alkaline Phosphatase 182 H D Total Protein 6.0 L Albumin 2.4 L Active Medications Generic Name Dose Route Start Last Admin Trade Name Freq PRN Reason Stop Dose Admin Acetaminophen 650 mg 03/20/17 10:52 03/22/17 06:42 Tylenol - PO 650 mg Q6H PRN Administration FEVER OR PAIN Ceftriaxone Sodium 2 gm 03/22/17 10:00 03/22/17 12:12 Rocephin 2gm Ivpb (Pre-Docked) IVPB 2 gm DAILY JEM Administration Protocol Enoxaparin Sodium 40 mg 03/21/17 21:00 03/22/17 11:12 Lovenox - SQ 40 mg DAILY JEM Administration Metronidazole 100 mls @ 100 mls/hr 03/20/17 18:00 03/22/17 09:17 Flagyl 500mg Premixed Ivpb - IVPB 100 mls/hr Q8H-IV JEM Administration Sodium Chloride 1,000 mls @ 75 mls/hr 03/20/17 11:00 03/22/17 13:09 Normal Saline - IV Not Given ASDIR JEM Pantoprazole Sodium 100 mls @ 200 mls/hr 03/21/17 10:00 03/22/17 11:12 Protonix 40mg Ivpb (Pre-Docked) IVPB 200 mls/hr DAILY JEM Administration Morphine Sulfate 1 mg 03/20/17 10:56 03/21/17 22:21 Morphine Injection - IVPUSH 1 mg Q4H PRN Administration PAIN Ondansetron HCl 4 mg 03/20/17 10:52 03/20/17 19:35 Zofran Injection IVPB 4 mg Q6H PRN Administration NAUSEA ASSESSMENT/PLAN: Patient is a 42 year old female with no significant past medical history who presented to the ER on 03/20/2017 with symptoms of fever, nausea, vomiting, diarrhea x 4 days. She had multiple episodes of vomiting on Tuesday, which subsided on . She also reports multiple episodes of diarrhea accompanied by lower abdominal cramping. Denies chest pain, shortness of breath , palpitation or dizziness. On admission, her WBC was noted to be 14.9, with a fever of 102.7F, tachycardia @123. A CT scan of abdomen and pelvis showed acute sigmoid diverticulitis with an associated 5.x3x3cm abscess within the cul de sac. ID: Sepsis secondary to diverticulitis of intestine with abscess-sigmoid diverticulitis - resolving Assessment/Plan: on admission fever 102.7, WBC 14.9, tachycardia 123 Fever curve now improving, WBC 12.5, mild tachycardia A CT scan of abdomen and pelvis showed acute sigmoid diverticulitis with an associated 5.x3x3cm abscess within the cul de sac. S/P IR drainage with SEBASTIAN bulb placement on 03/21/2017 WBC @ 12.5, monitor vitals, labs and fever curve Ice chips diet today, clears tomorrow if able to tolerate Pain management with morphine On Rocephin (day 2) and Flagyl (day 3) ID following Surgery following Can have ice chips prn repeat blood cultures ngtd, gram stain of wound pending F.E.N. Fluids: NS @75cc/hr Electrolytes: hypokalemia with K riders Nutrition: NPO, ice chips OK Prophylaxis: DVT: SCDs, ambulation, Lovenox 40mg GI: Protonix ivpb Disposition: Requires inpatient hospitalization. Full Code. Visit type - Emergency Visit Emergency Visit: Yes ED Registration Date: 03/20/17 Care time: The patient presented to the Emergency Department on the above date and was hospitalized for further evaluation of their emergent condition. - New Patient This patient is new to me today: No - Critical Care Critical Care patient: No - Discharge Referral Referred to [facility] No
--- NOTE | 2017-03-22 16:39 | PN ---
Progress Note (short form) - Note Progress Note: surgery pt seen and examined. feels well. hungry. much better than before procedure. afebrile,tmax 100.8 abd- soft, nt jeannine sero-purulent Selected Entries 03/20/17 03/22/17 03/22/17 22:03 02:00 10:00 Temperature 102 F H 100.8 F H 98.8 F 03/22/17 14:07 Temperature 98.7 F Laboratory Tests 03/21/17 03/22/17 05:35 07:35 WBC 11.4 H 12.5 H Plan- presumed complicated diverticulitis>>>malignancy- follow cultures, cont iv abx, cont drain, clear liquids. would repeat ct with possible discharge to follow +/- drain. abx per id. eventual colonoscopy and sigmoid colectomy.
[2017-03-22] MEDS ORDERED: ACETAMINOPHEN 1000 MG/100 ML VIAL (NON FORMULARY) IVPB ONE (18:07)
[2017-03-22] MEDS: POTASSIUM CHLORIDE 10 MEQ in SODIUM CHLORIDE 1,000 ML IVPB SCH ×2 (21:58→22:19)
[2017-03-22 22:11] LABS: URINE APPEARANCE CLEAR; URINE BILIRUBIN NEGATIVE (NEGATIVE); URINE COLOR DKYELLOW; URINE GLUCOSE (UA) NEGATIVE (NEGATIVE); URINE KETONE 2+ (NEGATIVE); URINE NITRITE NEGATIVE (NEGATIVE); URINE UROBILINOGEN NEGATIVE E.U./dl (0.2-1.0)
[2017-03-22 22:12] LABS: URINE BLOOD 3+ (NEGATIVE); URINE LEUK ESTERASE TRACE (NEGATIVE); URINE PROTEIN 2+ (NEGATIVE)
[2017-03-22 22:21] LABS: URINE MUCUS FEW; URINE RBC 20 /hpf (0-3); URINE WBC 10 /hpf (3-5)
[2017-03-23] MEDS: METRONIDAZOLE 500 MG PREMIXED 100 ML IVPB SCH ×3 (02:26→17:23)
[2017-03-23] MEDS ORDERED: POTASSIUM CHLORIDE 10 MEQ in SODIUM CHLORIDE 1,000 ML IVPB SCH ×2 (06:15→08:45)
[2017-03-23 07:11] LABS: BASOPHIL 0.4 % (0-2.0); EOSINOPHIL 1.1 % (0-4.5); MCH 27.2 pg (25.7-33.7); MCHC 32.9 g/dl (32.0-36.0); MEAN CELL VOLUME 82.7 fl (80-96); MEAN PLT VOLUME 8.4 fl (7.5-11.1); NEUTROPHILS 76.9 % (42.8-82.8); PLATELET COUNT 295 K/MM3 (134-434); RDW 14.1 % (11.6-15.6)
[2017-03-23 07:42] LABS: ALBUMIN 2.6 g/dl (3.4-5.0); ANION GAP 13 (8-16); CALCIUM 8.1 mg/dL (8.5-10.1); CO2 22 mmol/L (21-32); GLUCOSE,RANDOM 110 mg/dL (74-106)
[2017-03-23 07:45] LABS: ALK PHOS 155 U/L (45-117); BILIRUBIN,TOTAL 0.5 mg/dL (0.2-1.0); CREATININE 0.5 mg/dL (0.55-1.02); SGOT/AST 13 U/L (15-37); SGPT/ALT 28 U/L (12-78); TOT PROT 6.2 g/dl (6.4-8.2)
--- NOTE | 2017-03-23 09:55 | PN ---
Progress Note (short form) - Note Progress Note: surgery pt tolerating liquids. no fevers. bm. drainage 40x24 hours. will advance to low fiber diet tonight. repeat ct tomorrow with drain decision to be made. rhona d/c Tuesday on augmentin 875 bid if ID agrees. eventual colonoscopy and colectomy.
[2017-03-23] MEDS: cefTRIAXone 2 GM/100 ML BAG (PRE-DOCKED) IVPB SCH (10:16)
[2017-03-23] MEDS: ENOXAPARIN NA (PORCINE) 40 MG/0.4 ML DISP.SYRIN SQ SCH (10:17)
[2017-03-23] MEDS: PANTOPRAZOLE SODIUM 100 ML IVPB SCH (10:17)
--- NOTE | 2017-03-23 16:06 | PN ---
Progress Note (short form) - Note Progress Note: pain has resolved Vital Signs Period Temp Pulse Resp BP Sys/Robles Pulse Ox Last 24 Hr 98.4 F-99.6 F 85-108 16-20 113-135/59-88 94-99 cor-rrr lungs clear abd soft,nt ext no edema jeannine with minimal drainage CBC, BMP 03/23/17 06:15 03/23/17 06:15 Microbiology 03/21/17 15:00 Abscess Gram Stain - Final 03/21/17 15:00 Abscess Body Fluid Culture - Preliminary Lactose Fermenting Neg Bacilli 03/21/17 10:55 Blood - Peripheral Venous Blood Culture - Preliminary NO GROWTH OBTAINED AFTER 48 HOURS, INCUBATION TO CONTINUE FOR 3 DAYS. 03/21/17 10:55 Blood - Peripheral Venous Blood Culture - Preliminary NO GROWTH OBTAINED AFTER 48 HOURS, INCUBATION TO CONTINUE FOR 3 DAYS. 03/20/17 09:23 Blood - Peripheral Venous Blood Culture - Preliminary NO GROWTH OBTAINED AFTER 72 HOURS, INCUBATION TO CONTINUE FOR 2 DAYS. 03/20/17 09:23 Blood - Peripheral Venous Blood Culture - Preliminary NO GROWTH OBTAINED AFTER 72 HOURS, INCUBATION TO CONTINUE FOR 2 DAYS. a/p diverticulitis with abscess s/p IR drainage yesterday f/u cultures continue rocephin/flagyl clinically improved Problem List - Problems (1) Diverticulitis of intestine with abscess Code(s): K57.80 - DVTRCLI OF INTEST, PART UNSP, W PERF AND ABSCESS W/O BLEED Qualifiers: Diverticulitis site: large intestine Diverticulitis bleeding: without bleeding Qualified Code(s): K57.20 - Diverticulitis of large intestine with perforation and abscess without bleeding
--- NOTE | 2017-03-23 16:10 | PN ---
Progress Note, Physician Chief Complaint: Ms Anderson says she is feeling much improved. No longer having pain or fevers. Denies cp, sob, n/v. Tolerating diet. - Current Medication List Current Medications: Active Medications Acetaminophen (Tylenol -) 650 mg PO Q6H PRN PRN Reason: FEVER OR PAIN Last Admin: 03/22/17 06:42 Dose: 650 mg Ceftriaxone Sodium (Rocephin 2gm Ivpb (Pre-Docked)) 2 gm IVPB DAILY JEM PRN Reason: Protocol Last Admin: 03/23/17 10:16 Dose: 2 gm Enoxaparin Sodium (Lovenox -) 40 mg SQ DAILY JEM Last Admin: 03/23/17 10:17 Dose: Not Given Metronidazole (Flagyl 500mg Premixed Ivpb -) 100 mls @ 100 mls/hr IVPB Q8H-IV JEM Last Admin: 03/23/17 10:13 Dose: 100 mls/hr Pantoprazole Sodium (Protonix 40mg Ivpb (Pre-Docked)) 100 mls @ 200 mls/hr IVPB DAILY JEM Last Admin: 03/23/17 10:17 Dose: 200 mls/hr Potassium Chloride (Potassium Chloride 10 Meq Premix Ivpb -) 100 mls @ 100 mls/ hr IVPB Q60M JEM Stop: 03/23/17 18:14 Ondansetron HCl (Zofran Injection) 4 mg IVPB Q6H PRN PRN Reason: NAUSEA Last Admin: 03/20/17 19:35 Dose: 4 mg - Objective Vital Signs: Vital Signs Temperature 99.6 F 03/23/17 14:07 Pulse Rate 108 H 03/23/17 14:07 Respiratory Rate 16 03/23/17 14:07 Blood Pressure 113/59 03/23/17 14:07 O2 Sat by Pulse Oximetry (%) 99 03/23/17 09:10 Constitutional: Yes: No Distress, Calm, Obese Cardiovascular: Yes: Regular Rate and Rhythm. No: Gallop, Murmur, Rub Respiratory: Yes: Regular, CTA Bilaterally. No: Rales, Rhonchi, Wheezes Gastrointestinal: Yes: Normal Bowel Sounds, Soft, Other (drain in place). No: Distention, Tenderness Extremities: Yes: WNL Edema: No Labs: CBC, BMP 03/23/17 06:15 03/23/17 06:15 INR, PTT INR 1.28 (0.82-1.09) H D 03/21/17 12:15 Problem List - Problems (1) Diverticulitis of intestine with abscess Assessment/Plan: -appreciate ID and general surgery assistance -drain in place with minimal clear drainage -continue IV rocephin and flagyl -plan for CT scan tomorrow -advance diet Code(s): K57.80 - DVTRCLI OF INTEST, PART UNSP, W PERF AND ABSCESS W/O BLEED Qualifiers: Diverticulitis site: large intestine Diverticulitis bleeding: without bleeding Qualified Code(s): K57.20 - Diverticulitis of large intestine with perforation and abscess without bleeding (2) Hypokalemia Assessment/Plan: -replace -recheck in am Code(s): E87.6 - HYPOKALEMIA
[2017-03-23] MEDS ORDERED: KCL 10 MEQ IVPB 100 ML IVPB SCH (16:15)
[2017-03-23] MEDS ORDERED: POTASSIUM CHLORIDE ORAL LIQUID 20 MEQ/15 ML PO ONE (17:05)
[2017-03-24] MEDS: METRONIDAZOLE 500 MG PREMIXED 100 ML IVPB SCH ×3 (02:52→17:59)
--- NOTE | 2017-03-24 09:16 | PN ---
Progress Note (short form) - Note Progress Note: surgery pt seen and examined. feels well. no pain. tolerating diet afebrile abd- soft, nt, jeannine serous Plan- repeat ct today. if no further collection can likely be removed by IR with d/c tomorrow on po abx per id. eventual colonoscopy and colectomy. should follow in about 4 weeks to consider elective surgery. follow sooner if discharged with drain. [phone]
[2017-03-24 09:22] LABS: BASOPHIL 0.7 % (0-2.0); EOSINOPHIL 2.6 % (0-4.5); MCH 26.8 pg (25.7-33.7); MCHC 32.1 g/dl (32.0-36.0); MEAN CELL VOLUME 83.3 fl (80-96); MEAN PLT VOLUME 8.4 fl (7.5-11.1); NEUTROPHILS 71.2 % (42.8-82.8); PLATELET COUNT 342 K/MM3 (134-434); RDW 14.3 % (11.6-15.6); WHITE BLOOD COUNT 9.3 K/mm3 (4.0-10.0)
[2017-03-24 09:47] LABS: ANION GAP 10 (8-16); CALCIUM 8.8 mg/dL (8.5-10.1); CO2 26 mmol/L (21-32); CREATININE 0.6 mg/dL (0.55-1.02); GLUCOSE,RANDOM 91 mg/dL (74-106); PHOSPHOROUS 3.5 mg/dL (2.5-4.9)
[2017-03-24] MEDS: PANTOPRAZOLE SODIUM 100 ML IVPB SCH (11:08)
[2017-03-24] MEDS: cefTRIAXone 2 GM/100 ML BAG (PRE-DOCKED) IVPB SCH (11:09)
[2017-03-24] MEDS: ENOXAPARIN NA (PORCINE) 40 MG/0.4 ML DISP.SYRIN SQ SCH (11:10)
--- NOTE | 2017-03-24 11:29 | PN ---
Progress Note, Physician Chief Complaint: Ms Anderson continues to improve. Tolerating diet. No cp, sob, n/v. - Current Medication List Current Medications: Active Medications Acetaminophen (Tylenol -) 650 mg PO Q6H PRN PRN Reason: FEVER OR PAIN Last Admin: 03/22/17 06:42 Dose: 650 mg Ceftriaxone Sodium (Rocephin 2gm Ivpb (Pre-Docked)) 2 gm IVPB DAILY JEM PRN Reason: Protocol Last Admin: 03/24/17 11:09 Dose: 2 gm Enoxaparin Sodium (Lovenox -) 40 mg SQ DAILY JEM Last Admin: 03/24/17 11:10 Dose: Not Given Metronidazole (Flagyl 500mg Premixed Ivpb -) 100 mls @ 100 mls/hr IVPB Q8H-IV JEM Last Admin: 03/24/17 11:09 Dose: 100 mls/hr Pantoprazole Sodium (Protonix 40mg Ivpb (Pre-Docked)) 100 mls @ 200 mls/hr IVPB DAILY [facility] Last Admin: 03/24/17 11:08 Dose: 200 mls/hr Ondansetron HCl (Zofran Injection) 4 mg IVPB Q6H PRN PRN Reason: NAUSEA Last Admin: 03/20/17 19:35 Dose: 4 mg - Objective Vital Signs: Vital Signs Temperature 99.4 F 03/24/17 06:37 Pulse Rate 91 H 03/24/17 06:37 Respiratory Rate 18 03/24/17 06:37 Blood Pressure 124/75 03/24/17 06:37 O2 Sat by Pulse Oximetry (%) 98 03/23/17 21:00 Constitutional: Yes: No Distress, Calm, Obese Cardiovascular: Yes: Regular Rate and Rhythm. No: Gallop, Murmur, Rub Respiratory: Yes: Regular, CTA Bilaterally. No: Rales, Rhonchi, Wheezes Gastrointestinal: Yes: Normal Bowel Sounds, Soft, Other (drain in place). No: Distention, Tenderness Extremities: Yes: WNL Edema: No Labs: CBC, BMP 03/24/17 08:35 03/24/17 08:35 INR, PTT INR 1.28 (0.82-1.09) H D 03/21/17 12:15 - ....Imaging Cat Scan: Image Reviewed (awaiting official read) Problem List - Problems (1) Diverticulitis of intestine with abscess Code(s): K57.80 - DVTRCLI OF INTEST, PART UNSP, W PERF AND ABSCESS W/O BLEED Qualifiers: Diverticulitis site: large intestine Diverticulitis bleeding: without bleeding Qualified Code(s): K57.20 - Diverticulitis of large intestine with perforation and abscess without bleeding (2) Hypokalemia Code(s): E87.6 - HYPOKALEMIA Assessment/Plan (1) Diverticulitis of intestine with abscess Assessment/Plan: -appreciate ID and general surgery assistance -CT scan performed and reviewed, awaiting official read -patient states will return this afternoon to inject dye into determine proper placement -continue rocephin and flagyl per ID -possible discharge tomorrow Code(s): K57.80 - DVTRCLI OF INTEST, PART UNSP, W PERF AND ABSCESS W/O BLEED Qualifiers: Diverticulitis site: large intestine Diverticulitis bleeding: without bleeding Qualified Code(s): K57.20 - Diverticulitis of large intestine with perforation and abscess without bleeding (2) Hypokalemia Assessment/Plan: -replaced Code(s): E87.6 - HYPOKALEMIA
--- NOTE | 2017-03-24 11:47 | PN ---
Progress Note, Physician Chief Complaint: ID Feels well ceftriaxone and metronidazole - Current Medication List Current Medications: Active Medications Acetaminophen (Tylenol -) 650 mg PO Q6H PRN PRN Reason: FEVER OR PAIN Last Admin: 03/22/17 06:42 Dose: 650 mg Ceftriaxone Sodium (Rocephin 2gm Ivpb (Pre-Docked)) 2 gm IVPB DAILY JEM PRN Reason: Protocol Last Admin: 03/24/17 11:09 Dose: 2 gm Enoxaparin Sodium (Lovenox -) 40 mg SQ DAILY [facility] Last Admin: 03/24/17 11:10 Dose: Not Given Metronidazole (Flagyl 500mg Premixed Ivpb -) 100 mls @ 100 mls/hr IVPB Q8H-IV JEM Last Admin: 03/24/17 11:09 Dose: 100 mls/hr Pantoprazole Sodium (Protonix 40mg Ivpb (Pre-Docked)) 100 mls @ 200 mls/hr IVPB DAILY [facility] Last Admin: 03/24/17 11:08 Dose: 200 mls/hr Ondansetron HCl (Zofran Injection) 4 mg IVPB Q6H PRN PRN Reason: NAUSEA Last Admin: 03/20/17 19:35 Dose: 4 mg - Objective Vital Signs: Vital Signs Temperature 99.4 F 03/24/17 06:37 Pulse Rate 91 H 03/24/17 06:37 Respiratory Rate 18 03/24/17 06:37 Blood Pressure 124/75 03/24/17 06:37 O2 Sat by Pulse Oximetry (%) 98 03/23/17 21:00 Constitutional: Yes: Well Nourished, No Distress Neck: Yes: WNL, Supple Cardiovascular: Yes: Regular Rate and Rhythm, S1, S2. No: Murmur Respiratory: Yes: WNL, Regular, CTA Bilaterally Gastrointestinal: Yes: WNL, Normal Bowel Sounds, Soft. No: Tenderness, Tenderness, Epigastrium, Other (SEBASTIAN drain) Edema: No Labs: CBC, BMP 03/24/17 08:35 03/24/17 08:35 INR, PTT INR 1.28 (0.82-1.09) H D 03/21/17 12:15 Assessment/Plan Microbiology 03/21/17 15:00 Abscess Gram Stain - Final 03/22/17 19:45 Blood - Peripheral Venous Blood Culture - Preliminary NO GROWTH OBTAINED AFTER 24 HOURS, INCUBATION TO CONTINUE FOR 4 DAYS. 03/21/17 15:00 Abscess Body Fluid Culture - Preliminary Lactose Fermenting Neg Bacilli Laboratory Tests 03/20/17 03/24/17 04:57 08:35 WBC 14.9 H D 9.3 RBC 4.32 Plt Count 342 Assessment Abscess with drain in place ( GNB in culture) Plan Drain to be removed here today or as outpatient with surgery Continue IV antibiotic for now Check final c/s for choice of oral antibiotic to continue post discharge Romero VIVAR
[2017-03-24] MEDS: ACETAMINOPHEN 325 MG TABLET (FP) PO PRN (21:52)
[2017-03-25] MEDS: METRONIDAZOLE 500 MG PREMIXED 100 ML IVPB SCH ×3 (02:37→17:33)
[2017-03-25 08:12] LABS: BASOPHIL 0.6 % (0-2.0); EOSINOPHIL 2.9 % (0-4.5); MCH 27.2 pg (25.7-33.7); MCHC 32.8 g/dl (32.0-36.0); MEAN CELL VOLUME 83.1 fl (80-96); MEAN PLT VOLUME 8.2 fl (7.5-11.1); NEUTROPHILS 68.1 % (42.8-82.8); PLATELET COUNT 336 K/MM3 (134-434); RDW 14.3 % (11.6-15.6); WHITE BLOOD COUNT 10.1 K/mm3 (4.0-10.0)
[2017-03-25 08:36] LABS: ANION GAP 13 (8-16); CO2 25 mmol/L (21-32); CREATININE 0.5 mg/dL (0.55-1.02); GLUCOSE,RANDOM 102 mg/dL (74-106); PHOSPHOROUS 4.1 mg/dL (2.5-4.9)
[2017-03-25 08:54] LABS: CALCIUM 8.5 mg/dL (8.5-10.1); MAGNESIUM 1.9 mg/dL (1.8-2.4)
[2017-03-25] MEDS: PANTOPRAZOLE SODIUM 100 ML IVPB SCH (10:45)
[2017-03-25] MEDS: ENOXAPARIN NA (PORCINE) 40 MG/0.4 ML DISP.SYRIN SQ SCH (10:45)
[2017-03-25] MEDS: cefTRIAXone 2 GM/100 ML BAG (PRE-DOCKED) IVPB SCH (10:45)
--- NOTE | 2017-03-25 11:54 | PN ---
Progress Note, Physician Chief Complaint: Ms Anderson had a fever last night but says she is feeling well. She is tolerating her diet. Denies cp, sob, n/v. However she says she is having significant amount of diarrhea. - Current Medication List Current Medications: Active Medications Acetaminophen (Tylenol -) 650 mg PO Q6H PRN PRN Reason: FEVER OR PAIN Last Admin: 03/24/17 21:52 Dose: 650 mg Enoxaparin Sodium (Lovenox -) 40 mg SQ DAILY JEM Last Admin: 03/25/17 10:45 Dose: Not Given Metronidazole (Flagyl 500mg Premixed Ivpb -) 100 mls @ 100 mls/hr IVPB Q8H-IV JEM Last Admin: 03/25/17 10:45 Dose: 100 mls/hr Pantoprazole Sodium (Protonix 40mg Ivpb (Pre-Docked)) 100 mls @ 200 mls/hr IVPB DAILY JEM Last Admin: 03/25/17 10:45 Dose: 200 mls/hr Ertapenem 1 gm/ Sodium (Chloride) 50 mls @ 50 mls/hr IVPB DAILY JEM PRN Reason: Protocol Ondansetron HCl (Zofran Injection) 4 mg IVPB Q6H PRN PRN Reason: NAUSEA Last Admin: 03/20/17 19:35 Dose: 4 mg - Objective Vital Signs: Vital Signs Temperature 98.8 F 03/25/17 06:00 Pulse Rate 68 03/25/17 06:00 Respiratory Rate 18 03/25/17 06:00 Blood Pressure 121/72 03/25/17 06:00 O2 Sat by Pulse Oximetry (%) 97 03/24/17 21:00 Constitutional: Yes: No Distress, Calm, Obese Cardiovascular: Yes: Regular Rate and Rhythm. No: Gallop, Murmur, Rub Respiratory: Yes: Regular, CTA Bilaterally. No: Rales, Rhonchi, Wheezes Gastrointestinal: Yes: Normal Bowel Sounds, Soft, Other (drain in place). No: Distention, Tenderness Extremities: Yes: WNL Edema: No Labs: CBC, BMP 03/25/17 06:00 03/25/17 06:00 INR, PTT INR 1.28 (0.82-1.09) H D 03/21/17 12:15 Problem List - Problems (1) Diverticulitis of intestine with abscess Code(s): K57.80 - DVTRCLI OF INTEST, PART UNSP, W PERF AND ABSCESS W/O BLEED Qualifiers: Diverticulitis site: large intestine Diverticulitis bleeding: without bleeding Qualified Code(s): K57.20 - Diverticulitis of large intestine with perforation and abscess without bleeding (2) Hypokalemia Code(s): E87.6 - HYPOKALEMIA (3) Diarrhea Code(s): R19.7 - DIARRHEA, UNSPECIFIED Assessment/Plan (1) Diverticulitis of intestine with abscess Assessment/Plan: -wound culture reviewed -growing ESBL e. coli, no po options -case d/w ID -change to ertapenem -monitor over weekend, if tolerates plan to discharge home with PICC line and home antibiotics Code(s): K57.80 - DVTRCLI OF INTEST, PART UNSP, W PERF AND ABSCESS W/O BLEED Qualifiers: Diverticulitis site: large intestine Diverticulitis bleeding: without bleeding Qualified Code(s): K57.20 - Diverticulitis of large intestine with perforation and abscess without bleeding (2) Hypokalemia Assessment/Plan: -replaced Code(s): E87.6 - HYPOKALEMIA (3) Diarrhea -on flagyl previously -however need to evaluate for c. diff -send stool for c. diff antigens and antibodies
--- NOTE | 2017-03-25 12:19 | PN ---
Progress Note (short form) - Note Progress Note: pain has resolved tube was unkinked yesterday febrile overnight some loose stools Vital Signs Period Temp Pulse Resp BP Sys/Robles Pulse Ox Last 24 Hr 98.7 F-101.6 F 68-112 - 121-139/72-82 97 cor-rrr lungs clear abd soft,nt +SEBASTIAN drain with small smt serous drainage ext no edema CBC, BMP 03/25/17 06:00 03/25/17 06:00 Microbiology 03/21/17 10:55 Blood - Peripheral Venous Blood Culture - Preliminary NO GROWTH OBTAINED AFTER 96 HOURS, INCUBATION TO CONTINUE FOR 1 DAYS. 03/21/17 10:55 Blood - Peripheral Venous Blood Culture - Preliminary NO GROWTH OBTAINED AFTER 96 HOURS, INCUBATION TO CONTINUE FOR 1 DAYS. 03/20/17 09:23 Blood - Peripheral Venous Blood Culture - Final NO GROWTH AFTER 5 DAYS INCUBATION 03/20/17 09:23 Blood - Peripheral Venous Blood Culture - Final NO GROWTH AFTER 5 DAYS INCUBATION 03/21/17 15:00 Abscess Gram Stain - Final 03/21/17 15:00 Abscess Body Fluid Culture - Final Escherichia Coli Esbl Loss Prevention Auditor 03/21/17 15:00 Abscess Anaerobic Culture - Preliminary Anaerobic Cocci 03/22/17 19:45 Blood - Peripheral Venous Blood Culture - Preliminary NO GROWTH OBTAINED AFTER 48 HOURS, INCUBATION TO CONTINUE FOR 3 DAYS. 03/22/17 19:50 Blood - Peripheral Venous Blood Culture - Preliminary NO GROWTH OBTAINED AFTER 48 HOURS, INCUBATION TO CONTINUE FOR 3 DAYS. 03/22/17 21:20 Urine - Urine Clean Catch Urine Culture - Final a/p diverticulitis with abscess s/p IR drainage yesterday ecoli ESBL and anaerobe in abscess! switch to iv ertapenem/flagyl cdiff ordered contact isolation d/w patient if afebrile over the weekend, plan for picc line and ertapenem for one week at home (no po options) d/w Dr Moreau Problem List - Problems (1) Diverticulitis of intestine with abscess Code(s): K57.80 - DVTRCLI OF INTEST, PART UNSP, W PERF AND ABSCESS W/O BLEED Qualifiers: Diverticulitis site: large intestine Diverticulitis bleeding: without bleeding Qualified Code(s): K57.20 - Diverticulitis of large intestine with perforation and abscess without bleeding
[2017-03-25] MEDS: ERTAPENEM SODIUM 1 GM in SODIUM CHLORIDE 50 ML IVPB SCH (12:48)
--- NOTE | 2017-03-25 14:07 | PN ---
Progress Note (short form) - Note Progress Note: surgery pt seen and examined. feels well. had fever after procedure yesterday. tolerating diet. no pain afebrile abd- soft, nt, jeannine serous Plan- abx per id. will follow as outpt in about 2 weeks to evaluate for drain removal. needs eventual colonoscopy and should consider sigmoid colectomy. [phone]
[2017-03-26] MEDS: METRONIDAZOLE 500 MG PREMIXED 100 ML IVPB SCH ×3 (01:27→17:39)
[2017-03-26 08:25] LABS: BASOPHIL 0.6 % (0-2.0); MCHC 32.9 g/dl (32.0-36.0); MEAN CELL VOLUME 82.1 fl (80-96); NEUTROPHILS 70.2 % (42.8-82.8); PLATELET COUNT 346 K/MM3 (134-434); RDW 14.5 % (11.6-15.6); WHITE BLOOD COUNT 9.2 K/mm3 (4.0-10.0)
[2017-03-26 08:33] LABS: ANION GAP 8 (8-16); CALCIUM 8.3 mg/dL (8.5-10.1); CO2 29 mmol/L (21-32); GLUCOSE,RANDOM 101 mg/dL (74-106); MAGNESIUM 1.9 mg/dL (1.8-2.4)
[2017-03-26 08:36] LABS: CREATININE 0.6 mg/dL (0.55-1.02); PHOSPHOROUS 4.1 mg/dL (2.5-4.9)
[2017-03-26] MEDS: ENOXAPARIN NA (PORCINE) 40 MG/0.4 ML DISP.SYRIN SQ SCH (10:46)
[2017-03-26] MEDS: PANTOPRAZOLE SODIUM 100 ML IVPB SCH (10:46)
[2017-03-26] MEDS: ERTAPENEM SODIUM 1 GM in SODIUM CHLORIDE 50 ML IVPB SCH (10:47)
--- NOTE | 2017-03-26 13:40 | PN ---
Progress Note (short form) - Note Progress Note: pain has resolved fevers trending down no complaints no diarrhea Vital Signs Period Temp Pulse Resp BP Sys/Robles Pulse Ox Last 24 Hr 99.5 F-99.9 F 76-100 18-18 123-129/66-72 98 cor-rrr lungs clear abd soft,nt ext no edema jeannine with minimal drainage CBC, BMP 03/26/17 07:05 03/26/17 07:05 Microbiology 03/25/17 14:46 Stool Clostridium difficile Antigen (MICHELLE) - Final 03/25/17 14:46 Stool Clostridium difficile Toxin Assay - Final 03/21/17 10:55 Blood - Peripheral Venous Blood Culture - Final NO GROWTH AFTER 5 DAYS INCUBATION 03/21/17 10:55 Blood - Peripheral Venous Blood Culture - Final NO GROWTH AFTER 5 DAYS INCUBATION 03/22/17 19:45 Blood - Peripheral Venous Blood Culture - Preliminary NO GROWTH OBTAINED AFTER 72 HOURS, INCUBATION TO CONTINUE FOR 2 DAYS. 03/22/17 19:50 Blood - Peripheral Venous Blood Culture - Preliminary NO GROWTH OBTAINED AFTER 72 HOURS, INCUBATION TO CONTINUE FOR 2 DAYS. 03/21/17 15:00 Abscess Gram Stain - Final 03/21/17 15:00 Abscess Body Fluid Culture - Final Escherichia Coli Esbl Sausage Smoker 03/21/17 15:00 Abscess Anaerobic Culture - Final Streptococcus Constellatus 03/20/17 09:23 Blood - Peripheral Venous Blood Culture - Final NO GROWTH AFTER 5 DAYS INCUBATION 03/20/17 09:23 Blood - Peripheral Venous Blood Culture - Final NO GROWTH AFTER 5 DAYS INCUBATION 03/22/17 21:20 Urine - Urine Clean Catch Urine Culture - Final cdiff negative Current Medications Acetaminophen (Tylenol -) 650 mg PO Q6H PRN PRN Reason: FEVER OR PAIN Last Admin: 03/24/17 21:52 Dose: 650 mg Enoxaparin Sodium (Lovenox -) 40 mg SQ DAILY JEM Last Admin: 03/26/17 10:46 Dose: Not Given Metronidazole (Flagyl 500mg Premixed Ivpb -) 100 mls @ 100 mls/hr IVPB Q8H-IV JEM Last Admin: 03/26/17 10:45 Dose: 100 mls/hr Pantoprazole Sodium (Protonix 40mg Ivpb (Pre-Docked)) 100 mls @ 200 mls/hr IVPB DAILY JEM Last Admin: 03/26/17 10:46 Dose: 200 mls/hr Ertapenem 1 gm/ Sodium (Chloride) 50 mls @ 100 mls/hr IVPB DAILY JEM PRN Reason: Protocol Last Admin: 03/26/17 10:47 Dose: 100 mls/hr Ondansetron HCl (Zofran Injection) 4 mg IVPB Q6H PRN PRN Reason: NAUSEA Last Admin: 03/20/17 19:35 Dose: 4 mg a/p diverticulitis with abscess ecoli ESBL and anaerobe in abscess! iv ertapenem/flagyl dY #2 cdiff ordered contact isolation d/w patient if afebrile over the weekend, plan for picc line and ertapenem for one week at home (no po options) d/c planning aware d/w patient and Problem List - Problems (1) Diverticulitis of intestine with abscess Code(s): K57.80 - DVTRCLI OF INTEST, PART UNSP, W PERF AND ABSCESS W/O BLEED Qualifiers: Diverticulitis site: large intestine Diverticulitis bleeding: without bleeding Qualified Code(s): K57.20 - Diverticulitis of large intestine with perforation and abscess without bleeding
--- NOTE | 2017-03-26 16:59 | PN ---
Physical Exam: SUBJECTIVE: Patient seen and examined. Ambulating around room. Feels well. Has lower abdominal discomfort about 30 minutes after eating that usually results in a bowel movement. This has been diarrhea up until today. Today stools were soft but formed. OBJECTIVE: Vital Signs Period Temp Pulse Resp BP Sys/Robles Pulse Ox Last 24 Hr 98.4 F-99.9 F 70-100 16-18 110-129/66-84 98 GENERAL: The patient is awake, alert, and fully oriented, in no acute distress. HEAD: Normal with no signs of trauma. EYES: PERRL, extraocular movements intact, sclera anicteric, conjunctiva clear. No ptosis. LUNGS: Breath sounds equal, clear to auscultation bilaterally, no wheezes, no crackles, no accessory muscle use. HEART: Regular rate and rhythm, S1, S2 without murmur, rub or gallop. ABDOMEN: Soft, nontender, nondistended, normoactive bowel sounds, no guarding, no rebound, no hepatosplenomegaly, no masses. Posterior pigtail catheter draining serous fluid. EXTREMITIES: 2+ pulses, warm, well-perfused, no edema. NEUROLOGICAL: Cranial nerves II through XII grossly intact. Normal speech, steady gait. Laboratory Results - last 24 hr 03/26/17 03/26/17 07:05 07:05 WBC 9.2 RBC 4.15 Hgb 11.2 Hct 34.1 MCV 82.1 MCHC 32.9 RDW 14.5 Plt Count 346 MPV 8.0 Neutrophils % 70.2 Lymphocytes % 18.0 Monocytes % 8.2 Eosinophils % 3.0 Basophils % 0.6 Sodium 142 Potassium 3.6 Chloride 105 Carbon Dioxide 29 Anion Gap 8 BUN 7 D Creatinine 0.6 Random Glucose 101 Calcium 8.3 L Phosphorus 4.1 Magnesium 1.9 Active Medications Generic Name Dose Route Start Last Admin Trade Name Freq PRN Reason Stop Dose Admin Acetaminophen 650 mg 03/20/17 10:52 03/24/17 21:52 Tylenol - PO 650 mg Q6H PRN Administration FEVER OR PAIN Enoxaparin Sodium 40 mg 03/21/17 21:00 03/26/17 10:46 Lovenox - SQ Not Given DAILY JEM Metronidazole 100 mls @ 100 mls/hr 03/20/17 18:00 03/26/17 10:45 Flagyl 500mg Premixed Ivpb - IVPB 100 mls/hr Q8H-IV JEM Administration Pantoprazole Sodium 100 mls @ 200 mls/hr 03/21/17 10:00 03/26/17 10:46 Protonix 40mg Ivpb (Pre-Docked) IVPB 200 mls/hr DAILY JEM Administration Ertapenem 1 gm/ Sodium 50 mls @ 100 mls/hr 03/25/17 12:00 03/26/17 10:47 Chloride IVPB 100 mls/hr DAILY JEM Administration Protocol Ondansetron HCl 4 mg 03/20/17 10:52 03/20/17 19:35 Zofran Injection IVPB 4 mg Q6H PRN Administration NAUSEA ASSESSMENT/PLAN: (1) Diverticulitis of intestine with abscess Assessment/Plan: -wound culture growing E.coli ESBL and strep -continue Ertapenem -monitor over weekend, if tolerates plan to discharge home with PICC line for one week of ertapenem (2) Hypokalemia resolved (3) Diarrhea stools are soft but formed today Visit type - Emergency Visit Emergency Visit: Yes ED Registration Date: 03/20/17 Care time: The patient presented to the Emergency Department on the above date and was hospitalized for further evaluation of their emergent condition. - New Patient This patient is new to me today: Yes Date on this admission: 03/26/17 - Critical Care Critical Care patient: No
[2017-03-27] MEDS: METRONIDAZOLE 500 MG PREMIXED 100 ML IVPB SCH ×3 (01:18→17:46)
[2017-03-27] MEDS: ENOXAPARIN NA (PORCINE) 40 MG/0.4 ML DISP.SYRIN SQ SCH (09:16)
[2017-03-27] MEDS: PANTOPRAZOLE SODIUM 100 ML IVPB SCH (09:16)
[2017-03-27] MEDS: ERTAPENEM SODIUM 1 GM in SODIUM CHLORIDE 50 ML IVPB SCH (09:50)
--- NOTE | 2017-03-27 17:27 | PN ---
Physical Exam: SUBJECTIVE: Patient seen and examined. Still with very minor lower abdominal discomfort after eating. Bowel movements are formed stool. OBJECTIVE: Vital Signs Period Temp Pulse Resp BP Sys/Robles Pulse Ox Last 24 Hr 98.4 F-99.0 F 78-100 16-20 112-133/61-83 98 GENERAL: The patient is awake, alert, and fully oriented, in no acute distress. HEAD: Normal with no signs of trauma. EYES: PERRL, extraocular movements intact, sclera anicteric, conjunctiva clear. No ptosis. LUNGS: Breath sounds equal, clear to auscultation bilaterally, no wheezes, no crackles, no accessory muscle use. HEART: Regular rate and rhythm, S1, S2 without murmur, rub or gallop. ABDOMEN: Soft, nontender, nondistended, normoactive bowel sounds, no guarding, no rebound, no hepatosplenomegaly, no masses. Posterior pigtail catheter draining serous fluid. EXTREMITIES: 2+ pulses, warm, well-perfused, no edema. NEUROLOGICAL: Cranial nerves II through XII grossly intact. Normal speech, steady gait. Active Medications Generic Name Dose Route Start Last Admin Trade Name Freq PRN Reason Stop Dose Admin Acetaminophen 650 mg 03/20/17 10:52 03/24/17 21:52 Tylenol - PO 650 mg Q6H PRN Administration FEVER OR PAIN Enoxaparin Sodium 40 mg 03/21/17 21:00 03/27/17 09:16 Lovenox - SQ Not Given DAILY JEM Metronidazole 100 mls @ 100 mls/hr 03/20/17 18:00 03/27/17 10:23 Flagyl 500mg Premixed Ivpb - IVPB 100 mls/hr Q8H-IV JEM Administration Pantoprazole Sodium 100 mls @ 200 mls/hr 03/21/17 10:00 03/27/17 09:16 Protonix 40mg Ivpb (Pre-Docked) IVPB 200 mls/hr DAILY JEM Administration Ertapenem 1 gm/ Sodium 50 mls @ 100 mls/hr 03/25/17 12:00 03/27/17 09:50 Chloride IVPB 100 mls/hr DAILY JEM Administration Protocol Ondansetron HCl 4 mg 03/20/17 10:52 03/20/17 19:35 Zofran Injection IVPB 4 mg Q6H PRN Administration NAUSEA ASSESSMENT/PLAN: (1) Diverticulitis of intestine with abscess Assessment/Plan: -wound culture growing E.coli ESBL and strep -continue Ertapenem -monitor over weekend, if tolerates plan to discharge home with PICC line for one week of ertapenem (2) Hypokalemia resolved (3) Diarrhea stools are soft but formed Visit type - Emergency Visit Emergency Visit: Yes ED Registration Date: 03/20/17 Care time: The patient presented to the Emergency Department on the above date and was hospitalized for further evaluation of their emergent condition. - New Patient This patient is new to me today: No - Critical Care Critical Care patient: No
[2017-03-28] MEDS: METRONIDAZOLE 500 MG PREMIXED 100 ML IVPB SCH ×2 (02:22→09:25)
[2017-03-28] MEDS: PANTOPRAZOLE SODIUM 100 ML IVPB SCH (09:25)
[2017-03-28] MEDS: ERTAPENEM SODIUM 1 GM in SODIUM CHLORIDE 50 ML IVPB SCH (09:25)
[2017-03-28] MEDS: ENOXAPARIN NA (PORCINE) 40 MG/0.4 ML DISP.SYRIN SQ SCH (09:36)
--- NOTE | 2017-03-28 10:27 | PN ---
Progress Note, Physician Chief Complaint: ID Doing well No complaints Ertepenem Fevers down - Current Medication List Current Medications: Active Medications Acetaminophen (Tylenol -) 650 mg PO Q6H PRN PRN Reason: FEVER OR PAIN Last Admin: 03/24/17 21:52 Dose: 650 mg Enoxaparin Sodium (Lovenox -) 40 mg SQ DAILY [facility] Last Admin: 03/28/17 09:36 Dose: Not Given Pantoprazole Sodium (Protonix 40mg Ivpb (Pre-Docked)) 100 mls @ 200 mls/hr IVPB DAILY [facility] Last Admin: 03/28/17 09:25 Dose: 200 mls/hr Ertapenem 1 gm/ Sodium (Chloride) 50 mls @ 100 mls/hr IVPB DAILY [facility] PRN Reason: Protocol Last Admin: 03/28/17 09:25 Dose: 100 mls/hr Ondansetron HCl (Zofran Injection) 4 mg IVPB Q6H PRN PRN Reason: NAUSEA Last Admin: 03/20/17 19:35 Dose: 4 mg - Objective Vital Signs: Vital Signs Temperature 99.5 F 03/28/17 06:00 Pulse Rate 77 03/28/17 06:00 Respiratory Rate 18 03/28/17 06:00 Blood Pressure 118/73 03/28/17 06:00 O2 Sat by Pulse Oximetry (%) 98 03/26/17 21:00 Constitutional: Yes: Well Nourished, No Distress Neck: Yes: WNL, Supple Cardiovascular: Yes: S1, S2 Respiratory: Yes: WNL, Regular, CTA Bilaterally Gastrointestinal: Yes: WNL, Normal Bowel Sounds, Soft, Other (Drain in situ posterior buttock). No: Tenderness, Tenderness, Epigastrium Labs: CBC, BMP 03/26/17 07:05 03/26/17 07:05 INR, PTT INR 1.28 (0.82-1.09) H D 03/21/17 12:15 Assessment/Plan Microbiology 03/25/17 14:46 Stool Clostridium difficile Antigen (MICHELLE) - Final 03/25/17 14:46 Stool Clostridium difficile Toxin Assay - Final Laboratory Tests 03/26/17 07:05 WBC 9.2 Hgb 11.2 Plt Count 346 Assessment Acute diverticulitis with abscess polymicrobial ESBL & Strep Plan Home Ertepenem as outline Obtain CRP and ESR Stop metronidazole Discussed Dr Andreia Jasso MD
[2017-03-28] MEDS ORDERED: PICC LINE 8 ML FLUSH PROTOCOL IVPUSH PRN (10:56)
--- NOTE | 2017-03-28 10:58 | DS ---
Physical Examination Vital Signs: Vital Signs Temperature 99.5 F 03/28/17 06:00 Pulse Rate 77 03/28/17 06:00 Respiratory Rate 18 03/28/17 06:00 Blood Pressure 118/73 03/28/17 06:00 O2 Sat by Pulse Oximetry (%) 98 03/26/17 21:00 Constitutional: Yes: No Distress, Calm, Obese Cardiovascular: Yes: Regular Rate and Rhythm. No: Gallop, Murmur, Rub Respiratory: Yes: Regular, CTA Bilaterally. No: Rales, Rhonchi, Wheezes Gastrointestinal: Yes: Normal Bowel Sounds, Soft. No: Distention, Tenderness Extremities: Yes: WNL Edema: No Labs: CBC, BMP 03/26/17 07:05 03/26/17 07:05 Discharge Summary Reason For Visit: DIVERTICULITIS OF INTESTINE WITH ABSCESS Current Active Problems Diarrhea (Acute) Diverticulitis of intestine with abscess (Acute) Hypokalemia (Acute) Hospital Course: (1) Diverticulitis of intestine with abscess Code(s): K57.80 - DVTRCLI OF INTEST, PART UNSP, W PERF AND ABSCESS W/O BLEED Qualifiers: Diverticulitis site: large intestine Diverticulitis bleeding: without bleeding Qualified Code(s): K57.20 - Diverticulitis of large intestine with perforation and abscess without bleeding (2) Hypokalemia Code(s): E87.6 - HYPOKALEMIA (3) Diarrhea Code(s): R19.7 - DIARRHEA, UNSPECIFIED Ms Anderson is a very pleasant 42 year old female who comes in and was found to have diverticulitis of the sigmoid colon with abscess. She was admitted to the hospital and originally started on rocephin and flagyl by ID. She had a drain placed successfully. Cultures were sent and came back as ESBL e. coli. Her antibiotics were changed to ertapenem by ID. Drainage stopped, but she should maintain drain while on antibiotics. She is currently safe for discharge home with home antibiotics. 37 minutes spent in preparation of this discharge Condition: Good - Instructions Diet, Activity, Other Instructions: resume previous diet and activity Referrals: Delbert Galvan MD [Primary Care Provider] - Yvonne Gerber MD [Staff Physician] - Efren Sanchez MD [Staff Physician] - Disposition: [facility]NS/HOME HEALTH CARE - Home Medications Comprehensive Discharge Medication List: Ambulatory Orders Escitalopram Oxalate [Lexapro -] 10 mg PO DAILY 03/20/17 Norethindrone AC-Eth Estradiol [Junel 1 mg-20 Mcg Tablet] 1 each PO DAILY Ertapenem Sodium [Invanz -] 1 gm IVPB DAILY #10 vial 03/28/17
[2017-03-28 14:45] VITALS: BP 125/71; PULSE 110; TEMP 98.8
== END 2017-03-28 15:12 | disposition home health service (06) | DRG 392 ==
LOC: JER 02:41 → JERBED 09:58 → J5S 14:54 → J8W 03-25 21:10
PROVIDERS: ADMIT Internal Medicine Geriatric Medicine; ATTEND Internal Medicine
PROC: 0W9J30Z Drainage of Pelvic Cavity with Drainage Device, Percutaneous Approach (ICD-10-PCS; principal; 2017-03-21)
PROC: BW111ZZ Fluoroscopy of Abdomen and Pelvis using Low Osmolar Contrast (ICD-10-PCS; 2017-03-24)
PROC: 02HV33Z Insertion of Infusion Device into Superior Vena Cava, Percutaneous Approach (ICD-10-PCS; 2017-03-28)
PROC: B5181ZA Fluoroscopy of Superior Vena Cava using Low Osmolar Contrast, Guidance (ICD-10-PCS; 2017-03-28)
DX: K57.20 Diverticulitis of large intestine with perforation and abscess without bleeding (principal); E87.6 Hypokalemia; R19.7 Diarrhea, unspecified; E66.9 Obesity, unspecified; Z68.38 Body mass index [BMI] 38.0-38.9, adult; Z71.3 Dietary counseling and surveillance
CPT/HCPCS: 36415; 36569; 49407; 49424; 74176-TC; 74177-TC; 76080-TC; 77001-TC; 80048; 80053; 81003; 81015; 82150; 83690; 83735; 84100; 84132; 84703; 85025; 85610; 87040; 87070; 87075; 87076; 87086; 87186; 87205; 87324; 87449; 87899; 93005; 93010; 99284-25; C1729; C1751; C1769; Q9967

== ENCOUNTER 2017-07-11 06:54 | Day surgery (SDC) | payer BC ==
[2017-07-07 12:46] VITALS: BMI 36.9
[2017-07-11] MEDS ORDERED: PROPOFOL 20 ML ONE ×3 (08:08)
[2017-07-11 08:43] VITALS: TEMP 98.3
[2017-07-11 09:37] VITALS: BP 132/61; PULSE 72
--- NOTE | 2017-07-12 17:26 | PATH ---
Surgical Pathology Report Patient Name: ABBIE GAO [facility]. Rec. #: [id number] /Age/Gender: 1975 (Age: 42) / F Account: [id number] Location: U-ENDOSCOPY Taken: 07/11/2017 Received: 07/11/2017 Reported: 07/12/2017 Physicians: Layla Talley M.D. Specimen(s) Received BX ANAL PAPILLOMA Clinical History History of diverticulitis, abdominal cramps Anal papilloma, diverticulosis Final Diagnosis ANAL CANAL, SNARE POLYPECTOMY: BENIGN FIBROEPITHELIAL POLYP WITH VASCULAR CONGESTION. NO DYSPLASIA IDENTIFIED. Electronically Signed Tanmay Mai M.D. Gross Description Received in formalin, labeled "anal papilloma" is a bowman, irregular portion of soft tissue measuring 0.4 cm. in greatest dimension. The specimen is submitted in toto in one cassette. /07/11/201707/11/2017
== END 2017-07-11 09:37 | disposition home or self-care (01) ==
LOC: JASU-ENDO 06:54
PROVIDERS: ATTEND Internal Medicine Gastroenterology
PROC: 0DBP8ZX Excision of Rectum, Via Natural or Artificial Opening Endoscopic, Diagnostic (ICD-10-PCS; principal; 2017-07-11 08:00)
DX: Z12.11 Encounter for screening for malignant neoplasm of colon (principal); K57.30 Diverticulosis of large intestine without perforation or abscess without bleeding; K64.4 Residual hemorrhoidal skin tags; K64.8 Other hemorrhoids; K57.32 Diverticulitis of large intestine without perforation or abscess without bleeding
CPT/HCPCS: 84703; 88305-TC

== ENCOUNTER 2017-09-13 06:22 | Inpatient (IN) | payer BC ==
--- NOTE | 2017-09-12 11:08 | HP ---
DATE OF ADMISSION: 09/14/2017 DATE OF SURGERY: 09/14/2017 REASON FOR ADMISSION: Complicated diverticulitis, chronic diverticular disease, chronic left lower quadrant pain. BRIEF HISTORY: This is a 42-year-old female who initially presented to [facility] Emergency Room in March of 2017 with complicated acute diverticulitis. She presented at that time with a several-day history of progressive cramping lower abdominal pain. A CT scan of the abdomen and pelvis demonstrated acute diverticulitis with a 5-cm abscess. The patient was managed medically at that time and continued to improve. She underwent a colonoscopy as an outpatient in July of 2017. That was performed by Dr. Talley. The colonoscopy demonstrated moderate diverticulosis throughout the distal left half of the colon with purulent drainage overlying several diverticula, the results of a short segment of narrowing 30 cm from the anus. There was no obvious cancer identified. Patient has not had a CAT scan since discharge. Patient is scheduled for a CAT scan in the next week or so from this dictation. At present, the patient complains of still having pain in the left lower abdomen. She always feels it. There are days when it gets worse. She is status post approximately 10 days of antibiotic treatment after colonoscopy. She has had no fever, chills, or sweats (patient treated with antibiotics given the colonoscopic findings). PAST SURGICAL HISTORY: Significant for cholecystectomy. MEDICATIONS: Lexapro and control pills. SOCIAL HISTORY: Patient does not smoke or drink. ALLERGIES: None. PHYSICAL EXAMINATION: Lungs: Clear. Heart: Regular rate and rhythm. Abdomen: Soft, mildly obese. There is mild left lower quadrant tenderness to moderate palpation. She has no guarding. No rebound. There are no other significant findings. Rectal: Deferred. Patient just had colonoscopy. 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 At this point, she is symptomatic, and we will need to proceed with an elective resection. Patient is scheduled for CAT scan, and barring any unforeseen significant findings on CAT scan, patient will be scheduled for attempt at a laparoscopic low anterior resection for chronic diverticular disease. Given her findings, she has a higher conversion rate to an open procedure, and there is also higher risk for having a diverting type of ostomy as well as leak after the operation. Patient understands the risks and still wants to proceed. Patient will be scheduled for a laparoscopic low anterior resection, possible open, possible ostomy. The indications, alternatives, and complications discussed; questions answered. We will plan on obtaining written consent the day of surgery. DESIREE DIAZ M.D. [id number]
[2017-09-13 07:47] VITALS: BMI 38.2
[2017-09-13] MEDS ORDERED: PEG3350/SOD SULF,BICARB,CL/KCL 4,000 ML SOLN.RECON PO ONE (09:00)
[2017-09-13] MEDS ORDERED: LACTATED RINGERS SOLUTION 1,000 ML IV SCH (10:30)
[2017-09-13] MEDS: ESCITALOPRAM OXALATE 10 MG TABLET (FP) PO SCH (11:36)
[2017-09-14] MEDS ORDERED: GlUCAGON HUMAN RECOMBINANT 1 MG/VIAL ONE (07:06)
[2017-09-14] MEDS ORDERED: SUCCINYLCHOLINE CHLORIDE 200 MG/10 ML VIAL ONE (07:51)
[2017-09-14] MEDS ORDERED: ROCURONIUM BROMIDE 50 MG/5 ML VIAL ONE ×4 (07:51→11:54)
[2017-09-14] MEDS ORDERED: PROPOFOL 20 ML ONE ×4 (07:51→12:01)
[2017-09-14] MEDS ORDERED: MIDAZOLAM HCL 2 MG/2 ML SINGLE DOSE VIAL ONE (07:52)
[2017-09-14] MEDS ORDERED: ERTAPENEM SODIUM 1 GM in SODIUM CHLORIDE 50 ML IVPB ONE ×2 (08:00→17:00)
[2017-09-14] MEDS ORDERED: ERTAPENEM SODIUM 1 GM VIAL IVPB ONE (08:30)
[2017-09-14] MEDS ORDERED: HYDROmorphone HCL/PF 1 MG/ML VIAL (FOR PYXIS CHARGING ONLY) ONE ×2 (08:38→10:51)
[2017-09-14] MEDS ORDERED: ONDANSETRON 4 MG/2 ML VIAL ONE ×2 (08:41→12:01)
[2017-09-14] MEDS ORDERED: ePHEDrine SULFATE 50 MG/1 ML AMPULE ONE (08:48)
[2017-09-14] MEDS ORDERED: DESFLURANE GAS 240 ML BOTTLE IH ONE (10:37)
[2017-09-14] MEDS ORDERED: GLYCOPYRROLATE 0.2 MG/1 ML VIAL ONE (12:01)
[2017-09-14] MEDS ORDERED: NEOSTIGMINE METHYLSULFATE 0.5 MG/ML - 10 ML MDV ONE (12:01)
[2017-09-14] MEDS ORDERED: BUPIVACAINE HCL/PF 0.5% (5MG/ML) 10 ML VIAL ONE (12:13)
[2017-09-14] MEDS ORDERED: BUPIVACAINE HCL/PF (5 MG/ML) 30 ML VIAL IJ ONE ×2 (12:18→12:47)
[2017-09-14] MEDS ORDERED: ONDANSETRON 4 MG/2 ML VIAL IVPUSH PRN ×2 (12:20→16:35)
[2017-09-14] MEDS ORDERED: LACTATED RINGERS SOLUTION 1,000 ML IV SCH ×2 (12:30→16:35)
[2017-09-14] MEDS ORDERED: HYDROmorphone *PCA* 10MG/50ML DISP.SYRIN PCA SCH ×2 (12:30→15:22)
[2017-09-14] MEDS ORDERED: DEXAMETHASONE SOD PHOSPHATE/PF 10 MG/ML SDV ONE (12:40)
--- NOTE | 2017-09-14 13:06 | OP ---
Operative Note - Note: Operative Date: 09/14/17 Pre-Operative Diagnosis: complicated diverticulitis Operation: laparoscopic low anterior resection Findings: thickened distal sigmoid colon with chronic abscess cavity Surgeon: Fer Doll Instructional Design Technologist: Efren Sanchez Anesthesiologist/SPOT WASHER: Dominique Conrad Anesthesia: General Specimens Removed: rectosigmoid Estimated Blood Loss (mls): 30 Drains & Tubes with Location: jeannine pelvis
[2017-09-14] MEDS ORDERED: FAMOTIDINE 20 MG/50 ML IVPB 20 MG/50 ML MG IVPB ONE (13:21)
[2017-09-14] MEDS ORDERED: HYDROmorphone *PCA* 10MG/50ML DISP.SYRIN PCA ONE (13:23)
[2017-09-14] MEDS ORDERED: FAMOTIDINE 20 MG PREMIXED IVPB IVPB ONE (13:25)
[2017-09-14] MEDS ORDERED: ACETAMINOPHEN INJECTION 100 ML IVPB ONE (13:30)
[2017-09-14] MEDS: ACETAMINOPHEN 1000 MG/100 ML VIAL (NON FORMULARY) IVPB SCH ×2 (13:35→21:59)
[2017-09-14] MEDS ORDERED: FAMOTIDINE IV 20 MG/12 ML VIAL IVPUSH SCH ×2 (15:30)
[2017-09-14] MEDS ORDERED: oxyCODONE HCL 5 MG TABLET PO PRN (18:16)
[2017-09-14] MEDS: morphine SULFATE 4 MG/ML VIAL IV PRN (22:52)
[2017-09-15] MEDS: ACETAMINOPHEN 1000 MG/100 ML VIAL (NON FORMULARY) IVPB SCH ×3 (02:52→09:03)
[2017-09-15] MEDS: morphine SULFATE 4 MG/ML VIAL IV PRN ×4 (05:43→22:56)
[2017-09-15] MEDS: ESCITALOPRAM OXALATE 10 MG TABLET (FP) PO SCH ×2 (07:12→10:22)
[2017-09-15 07:39] LABS: HEMATOCRIT 35.5 % (32.4-45.2); HEMOGLOBIN 11.4 GM/dL (10.7-15.3); MCH 26.4 pg (25.7-33.7); MEAN CELL VOLUME 82.6 fl (80-96); MEAN PLT VOLUME 8.6 fl (7.5-11.1); PLATELET COUNT 268 K/MM3 (134-434); WHITE BLOOD COUNT 11.3 K/mm3 (4.0-10.0)
[2017-09-15 08:06] LABS: CALCIUM 7.9 mg/dL (8.5-10.1); MAGNESIUM 1.8 mg/dL (1.8-2.4)
[2017-09-15 08:07] LABS: PHOSPHOROUS 3.5 mg/dL (2.5-4.9)
[2017-09-15] MEDS: LACTATED RINGERS SOLUTION 1,000 ML IV SCH ×2 (08:53→18:28)
[2017-09-15] MEDS: ERTAPENEM SODIUM 1 GM in SODIUM CHLORIDE 50 ML IVPB SCH (10:21)
[2017-09-15] MEDS: PANTOPRAZOLE SODIUM 40 MG VIAL IVPUSH SCH (10:22)
[2017-09-15] MEDS: ENOXAPARIN NA (PORCINE) 40 MG/0.4 ML DISP.SYRIN SQ SCH (10:22)
--- NOTE | 2017-09-15 11:25 | PN ---
Progress Note (short form) - Note Progress Note: Pt is day#1 s/p lap LAR. Doing well, no complaints, no anesthetic complications. Continue current treatment
--- NOTE | 2017-09-15 12:20 | OP ---
DATE OF OPERATION: 09/14/2017 PREOPERATIVE DIAGNOSIS: Chronic diverticulitis, history of acute diverticulitis with intraabdominal abscess. POSTOPERATIVE DIAGNOSES: Chronic diverticulitis, history of acute diverticulitis with intraabdominal abscess, chronic left pelvic abscess. PROCEDURE: Laparoscopic low-anterior resection, extensive lysis of adhesions, splenic flexure takedown, peritoneal lavage, anal dilatation, rigid sigmoidoscopy, drainage of pelvic abscess, rectus sheath block. SURGEON: Fer Doll MD ALLIGATOR SHEAR OPERATOR: Efren Sanchez DO ANESTHESIA: Dominique Conrad MD (general). ESTIMATED BLOOD LOSS: Minimal. SPECIMEN: Rectosigmoid. INDICATIONS FOR PROCEDURE: This is a 42-year-old female whose history dates back to March of 2017, when she presented to the hospital with acute diverticulitis. Her diverticulitis at that time was noted to be very complicated since she had intraabdominal abscess that required percutaneous drainage and management. Ultimately, she went on to improve. However, she never fully improved and had persistent left-sided abdominal pain. In July of this year, she underwent a colonoscopy by Dr. Talley. The colonoscopy demonstrated no evidence of carcinoma, but she was noted to have diverticular disease and a stricture at approximately 30 cm. She was also noted to have pus coming from one of the diverticula at that level as well. Upon questioning of the patient in the office following the colonoscopy, she states she still has pelvic pain. She underwent a CAT scan that still showed chronic diverticular disease and phlegmonous changes in the left pelvic region. Given the chronic findings and persistent pain, the patient has opted to proceed with an elective . Significant medical comorbidities are morbid obesity. OPERATIVE FINDINGS: 1. Dense adhesions of omentum and small bowel to the left lower abdomen from her previous section. 2. No free ascites. 3. Densely chronic diverticular scar disease in the left pelvis with extension into the left presacral space. 4. Left pelvic abscess (chronic). 5. Marked thickening of the proximal rectum and mesentery of the mid-rectum. DESCRIPTION OF OPERATIVE PROCEDURE: Patient identified and appropriately positioned on the operating room table. After placement of general anesthesia, she was then subsequently placed in a low lithotomy position, and a Diego was placed. The abdomen was prepped with ChloraPrep, and the perineum prepped with Betadine. A supraumbilical incision was made and deepened into the subcutaneous tissue. The fascia was divided in the midline sharply, the peritoneum incised, and under direct vision, a Veress needle, followed by a structural needle placed. The remaining ports placed under direct vision as well, two left-sided 5-mm ports and right-sided 5- and a 12-mm port. Upon placement of the scope, it was obvious this patient had multiple adhesions of omentum and some small bowel to the lower anterior abdominal wall from her previous Pfannenstiel scar. These adhesions were taken down sharply and bluntly as needed. The bowel mobilized now into the right upper abdomen and the sigmoid colon visualized. The sigmoid colon was plastered to the anterolateral pelvic wall. There was a large inflammatory-type, chronic mass noted in the left pelvis as well, consisting of what appeared to be the proximal rectum. The patient was noted to have a slightly redundant sigmoid colon, and portion of its redundancy was plastered into the pelvis. Given this plastering of the pelvis and her chronic disease, I was unable to approach this problem from a [id number] direction initially. Therefore, the left colon was identified, the white line of Toldt identified at the peritoneal reflection level, and the colon rolled medially. The white line of Toldt was then subsequently divided sharply. This dissection was taken towards the pelvis at the point where the inflammatory process became very thick. This dissection then stopped. Proximal to this, the colon was rolled medially, and the left ureter identified and left in its retroperitoneal location. The loose areolar tissue above the ureter was then subsequently freed and the colon rolled medially as much as possible. At this point, the distal sigmoid was lifted to the anterior abdominal wall, and the peritoneal reflection on the left side of the colon was then scored with the LigaSure device. This dissection was taken to the level of the sacral brim. Using blunt dissection, the loose areolar mesentery was then teased away off the retroperitoneum, and the sigmoidal vessels were subsequently identified and the retroperitoneum teased off the posterior aspect of the sigmoidal vessels. The colon now rolled medially, and the ureter, that was previously identified, now re-visualized and noted to clearly be in the retroperitoneum. Therefore, the sigmoid vessels were subsequently divided. Four welds placed prior to complete division, and once the sigmoid vessels were divided, the window, between the loose areolar tissue that was proximally developed, to this new window, was then created and connected. The rectum on the right side of the patient was identified, and the peritoneal reflection at the rectal level was then scored sharply, and the presacral space was then subsequently entered. Using blunt dissection on the right side, the presacral space was subsequently developed towards the midline and towards the patient's left. The right superior hemorrhoidal vessel visualized, identified, isolated, and taken with the LigaSure device. Again, 4 welds placed prior to complete division. The prerectal space was then subsequently developed as best as possible from the undersurface from right to left, but in doing so, this enabled what I thought was the ureter that was left in the retroperitoneum. Once this was accomplished, the colon now rolled more medially, and the thickened inflammatory phlegmonous mass plastered to the left pelvis was then subsequently divided at the junction. The peritoneal reflection at this point was then subsequently identified and developed sharply, and the ureter was identified more proximally and left intact behind this peritoneal reflection. This was then taken down to the level of where the uterus and the tubes and ovaries on the left were. The tube and ovary on the left were plastered to portion of this phlegmonous mass, and that was off with blunt and sharp dissection. Once the left tube and ovary were mobilized, the uterus was lifted to the anterior abdominal wall, and the colon reflection along the left pelvis was scored with the LigaSure device. Initially, this plane was not well seen due to the phlegmonous mass, and a plane had to be made sharply. Once the plane was developed sharply, the presacral fat identified from the undersurface area, and this plane was then subsequently taken to the presacral space from left to right. At this point, the space was then developed more superiorly, and the left superior hemorrhoidal vessel identified. The rectum now lifted to the anterior abdominal wall, and looking from the patient's right to left, the superior hemorrhoidal vessels visualized once again, as well as the ureter. The superior hemorrhoidals were then subsequently taken entering the superior rectum. This was done with the LigaSure device. Once this was accomplished, the rectum was now completely mobilized on the patient's left gutter. During mobilization of the left gutter, a left pelvic abscess was identified, and the pus was suctioned out, the area locally irrigated, and the infection locally controlled. The area was irrigated with approximately 1 L of warm saline. The rectum now mobilized up and out of the presacral space, down to the level of the anterior peritoneal reflection. The anterior peritoneal reflection was left intact. In mobilizing and identifying the various structures, it was obvious to me this patient's perforation was on the left posterolateral wall of the colon, and the perforation had extended into the left presacral space along the mesentery of the presacral space, the mesorectum, and along the left side of the peritoneal reflection, which made this dissection very difficult. At this point, the distal line of resection was now chosen to be in the mid-rectum, beyond the diverticular disease and beyond the obvious stricture. The first officer went below and performed a limited examination of the anus and placement of a dilator up to the point of the distal resection. This allowed good visualization of the distal resection line, as well as ensuring that there were no strictured areas distal to the obvious distal resection line. Next, the fat around the rectum at this level was then subsequently divided with LigaSure device. Using a single-fire purple 60-load stapler, the rectum was stapled in transversely. At this point, once the colon was divided distally, it was then subsequently rolled medially, and the left colon completely off the left gutter. With blunt dissection, the colon was rolled medially up until the level of the SHAILA. The loose areolar tissue between the sigmoidal vessels and the SHAILA was subsequently taken with the LigaSure device. Clearly, to do a tension-free anastomosis in this patient, she required a splenic flexure takedown. At this point, the transverse colon identified, lifted to the anterior abdominal wall with the omentum. The omentum was off the transverse colon, and the transverse mesentery identified and rolled off the retroperitoneum with blunt dissection. This was directed from roughly the midline toward the splenic flexure. At the level of the splenic flexure, the colon was rolled off the gastrocolic ligament as well as the splenocolic and the renocolic ligaments. The renocolic was done bluntly. The splenocolic was done with LigaSure device. Once this was completed, the colon dropped into the left lower abdomen without tension, and the only point of holdup was at the level of the SHAILA. At this point, I proceeded to take the distal segment and determine the proximal line of resection and see if there was a way to do this anastomosis without dividing the SHAILA. Given the findings that this could not be done in a tension-free fashion, the SHAILA had to be sacrificed. The SHAILA was taken back at the level of the aorta, and at this level, you could see the SHAILA come off as a single trunk and subsequently branch to form the marginal artery of Chanelle. The SHAILA pedicle was taken just before the takeoff to the branches to the marginal artery. Again, 4 welds placed prior to complete division. Once this was accomplished, the colon easily dropped into the operative field for a tension-free anastomosis. The surgeon licensed occupational therapy assistant at this point then took the camera out, and using her old Pfannenstiel scar, an incision was made through this, down into the subcutaneous tissue. The rectus identified and divided in a Pfannenstiel fashion. The peritoneum incised vertically, and the abdomen was entered. A wound protector subsequently placed, and the distally-divided colon was brought into the operative field. The field itself was draped off with sterile towels. The proximal line resection now was chosen to be into the left colon. A colotomy was made, and a 28 EEA anvil was placed in through the colotomy and milked into the colon proximally. Proximally, the colon was then subsequently divided just proximal to the colotomy with a MESSI 80/3.8-mm stapler. A single fire was used. The anvil was then spiked through the mid-aspect of the transverse staple line and then anchored with a 3-0 Prolene pursestring suture. The fat around the anvil was then subsequently bluntly freed with the cautery. The bowel returned to its anatomic position. Prior to returning the bowel to its anatomic position, it was examined and noted to be without evidence of ischemia, and there appeared to be good blood flow. The bowel returned to its anatomic position. The surgeon and first officer now changed gloves and gown as well as Bovie and suction. The wound protector and stuff were then subsequently removed as well. At this point, the first officer went below, performed the anal dilatation, and using serial dilatation with the dilators, small, medium, and large, the rectal stump was dilated to the large size. The dilator was placed up to the staple line of the rectal stump next the stapler. The stapler was then spiked under direct vision just anterior to the staple line and through the mid-aspect of it. The 2 ends subsequently mated, and the anvil and the stapler closed. Prior to firing, the mesentery to the bowel was re-examined and noted to be not twisted. The bowel itself had good color and no evidence of clinical ischemia, as well as the rectum. Stapler fired. health center assistant reported two good doughnuts without breaks in the doughnuts. The stapler removed. Grossly, the staple line examined, and there was no evidence of staple break. The first officer now performed air insufflation via the rectum. The pelvis was filled with fluid and the anastomosis checked and air leak tested. There were no leaks identified. This was done on three separate occasions, and again, no leak noted. Next, the first officer removed the air with opening the sigmoidoscope and using a retrograde milking technique, the air pushed out the rectum, and there were no air leaks identified as well, ruling out a ball-valve effect. At this point, the first officer performed a limited rigid sigmoidoscopy, examining the rectum. The rectum was pink and viable on either side of the anastomosis. The anastomosis was not traversed, and there were no gross breaks on the sigmoidoscopy. The 10 flat SEBASTIAN placed along the left gutter and into the left presacral space and brought through the left lower quadrant 5-mm port site. The ports were removed under direct vision. Port sites were noted to be hemostatic. The fascia at the 12-mm port site was closed with interrupted 0 Vicryl suture, as was the supraumbilical site. The incision at the 12-mm port site had to be lengthened to facilitate closure. The Pfannenstiel incision was closed in the following fashion: Peritoneum reapproximated with a running 3-0 chromic suture, the anterior sheath reapproximated with a running 0 PDS suture. The subcutaneous space irrigated. At this point, 20 mL of 0.50% Marcaine with 4 mg of Decadron were used for the rectus sheath block and was placed into the rectus sheath under direct vision at the level of the Pfannenstiel scar. The subcutaneous space irrigated, all skin closed with damir, and a SEBASTIAN sewn with 3-0 silk suture. At the conclusion of this case, sponge counts were correct. ATTESTATION: A brief operative note handwritten on the preprinted form. [facility] queried prior to giving narcotics. Diallo ALSTON [id number] cc: Layla Talley MD
--- NOTE | 2017-09-15 13:39 | PN ---
Progress Note (short form) - Note Progress Note: surgery pt seen and examined. oob once. taking morphine. no nausea. afebrile abd- soft, nt, incisions clean, jeannine sanguinous u/o 600 clear Laboratory Tests 09/15/17 06:25 WBC 11.3 H Hgb 11.4 A/P 1) Pod#1- cont npo, ivf, butler, jeannine 2) morphine, lortab, tylenol 3) prophylaxis- lovenox, protonix, oob, spirometer 4) depression- lexapro 5) chronic diverticulitis with abscess- cont iv abx. follow path
[2017-09-16] MEDS: LACTATED RINGERS SOLUTION 1,000 ML IV SCH (05:07)
[2017-09-16] MEDS: morphine SULFATE 4 MG/ML VIAL IV PRN (05:09)
[2017-09-16 08:09] LABS: BASO % 0.5 % (0-2.0); EOS % 0.3 % (0-4.5); HEMATOCRIT 35.7 % (32.4-45.2); HEMOGLOBIN 11.3 GM/dL (10.7-15.3); LYMPH % 10.8 % (8-40); MCHC 31.8 g/dl (32.0-36.0); MEAN CELL VOLUME 81.9 fl (80-96); MEAN PLT VOLUME 8.7 fl (7.5-11.1); MONO % 7.6 % (3.8-10.2); NEUT % 80.8 % (42.8-82.8); PLATELET COUNT 249 K/MM3 (134-434); RBC 4.36 M/mm3 (3.60-5.2); RDW 13.9 % (11.6-15.6)
[2017-09-16 08:38] LABS: ANION GAP 8 (8-16); BLOOD UREA NITROGEN 9 mg/dL (7-18); CALCIUM 7.6 mg/dL (8.5-10.1); CHLORIDE 104 mmol/L (98-107); CO2 28 mmol/L (21-32); CREATININE 0.4 mg/dL (0.55-1.02); GLUCOSE,RANDOM 89 mg/dL (74-106); MAGNESIUM 1.9 mg/dL (1.8-2.4); PHOSPHOROUS 2.4 mg/dL (2.5-4.9); POTASSIUM 3.4 mmol/L (3.5-5.1); SODIUM 140 mmol/L (136-145)
[2017-09-16] MEDS: ERTAPENEM SODIUM 1 GM in SODIUM CHLORIDE 50 ML IVPB SCH (09:53)
[2017-09-16] MEDS: ENOXAPARIN NA (PORCINE) 40 MG/0.4 ML DISP.SYRIN SQ SCH (09:53)
[2017-09-16] MEDS: PANTOPRAZOLE SODIUM 40 MG VIAL IVPUSH SCH (09:53)
[2017-09-16] MEDS: ESCITALOPRAM OXALATE 10 MG TABLET (FP) PO SCH ×2 (09:53→14:16)
[2017-09-16] MEDS ORDERED: POTASSIUM PHOSPHATE 27 MM in DEXTROSE 5%-WATER - 250 ML IVPB ONE (10:15)
[2017-09-16 10:57] LABS: PLATELET ESTIMATE NORMAL
--- NOTE | 2017-09-16 14:16 | PN ---
Progress Note (short form) - Note Progress Note: surgery pt seen and examined. more oob today. some flatus. afebrile, tmax 99.7 abd- soft, nt, incisions clean, jeannine sanguinous u/o 1450 Laboratory Tests 03/23/17 09/16/17 09/16/17 06:15 06:30 06:30 WBC 11.0 H 12.0 H Potassium 3.4 L Phosphorus 2.4 L D A/P 1) Pod#2- cont npo, ivf, butler, jeannine 2) tylenol 3) prophylaxis- lovenox, protonix, oob, spirometer 4) depression- lexapro 5) chronic diverticulitis with abscess- cont iv abx. follow path 6) hypokalemia- will replace 7) hypophosphatemis- will replace
[2017-09-17] MEDS: ACETAMINOPHEN 325 MG TABLET (FP) PO PRN ×3 (06:20→22:00)
[2017-09-17] MEDS: LACTATED RINGERS SOLUTION 1,000 ML IV SCH (06:20)
[2017-09-17 08:32] LABS: BASO % 0.5 % (0-2.0); EOS % 1.9 % (0-4.5); HEMOGLOBIN 11.7 GM/dL (10.7-15.3); LYMPH % 11.8 % (8-40); MCH 26.9 pg (25.7-33.7); MCHC 32.6 g/dl (32.0-36.0); MEAN CELL VOLUME 82.6 fl (80-96); MEAN PLT VOLUME 8.9 fl (7.5-11.1); MONO % 6.9 % (3.8-10.2); NEUT % 78.9 % (42.8-82.8); PLATELET COUNT 262 K/MM3 (134-434); RBC 4.35 M/mm3 (3.60-5.2); RDW 14.3 % (11.6-15.6); WHITE BLOOD COUNT 11.8 K/mm3 (4.0-10.0)
[2017-09-17 09:00] LABS: ANION GAP 13 (8-16); BLOOD UREA NITROGEN 9 mg/dL (7-18); CALCIUM 8.2 mg/dL (8.5-10.1); CHLORIDE 104 mmol/L (98-107); CO2 24 mmol/L (21-32); CREATININE 0.4 mg/dL (0.55-1.02); GLUCOSE,RANDOM 78 mg/dL (74-106); MAGNESIUM 1.7 mg/dL (1.8-2.4); PHOSPHOROUS 3.2 mg/dL (2.5-4.9); POTASSIUM 3.5 mmol/L (3.5-5.1); SODIUM 141 mmol/L (136-145)
[2017-09-17] MEDS ORDERED: PT OWN MED DRAWER 7, Y5N ONE (10:45)
[2017-09-17] MEDS: ERTAPENEM SODIUM 1 GM in SODIUM CHLORIDE 50 ML IVPB SCH (10:52)
[2017-09-17] MEDS: ESCITALOPRAM OXALATE 10 MG TABLET (FP) PO SCH (10:54)
[2017-09-17] MEDS: ENOXAPARIN NA (PORCINE) 40 MG/0.4 ML DISP.SYRIN SQ SCH (10:54)
[2017-09-17] MEDS: PANTOPRAZOLE SODIUM 40 MG VIAL IVPUSH SCH (10:55)
--- NOTE | 2017-09-17 11:01 | PN ---
Progress Note (short form) - Note Progress Note: surgery pt seen and examined. feels good today. flatus. hungry. afebrile, abd- soft, nt, incisions clean, jeannine sanguinous Laboratory Tests 09/17/17 09/17/17 07:30 07:30 WBC 11.8 H Potassium 3.5 Magnesium 1.7 L A/P 1) Pod#3- cont npo, ivf, butler, jeannine 2) tylenol 3) prophylaxis- lovenox, protonix, oob, spirometer 4) depression- lexapro 5) chronic diverticulitis with abscess- cont iv abx. follow path 6) hypokalemia- resolved 7) hypophosphatemis- resolved 8) hypomagnesemia- will replace
[2017-09-17] MEDS ORDERED: MAGNESIUM SULF 50% (8.12 MEQ/2 ML-1 GM VIAL) IVPB ONE (11:02)
[2017-09-17] MEDS ORDERED: KCL 10 MEQ IVPB 10 MEQ/100 ML INFUS.BAG IVPB SCH (11:15)
[2017-09-17] MEDS ORDERED: POTASSIUM CHLORIDE 30 MEQ in SODIUM CHLORIDE 300 ML IVPB ONE (11:30)
[2017-09-17] MEDS ORDERED: POTASSIUM CHLORIDE ORAL LIQUID 20 MEQ/15 ML PO ONE (14:15)
[2017-09-18] MEDS: LACTATED RINGERS SOLUTION 1,000 ML IV SCH (06:05)
[2017-09-18 08:06] LABS: BASO % 0.6 % (0-2.0); EOS % 4.4 % (0-4.5); HEMATOCRIT 36.4 % (32.4-45.2); HEMOGLOBIN 11.7 GM/dL (10.7-15.3); LYMPH % 12.7 % (8-40); MCH 26.6 pg (25.7-33.7); MCHC 32.2 g/dl (32.0-36.0); MEAN CELL VOLUME 82.6 fl (80-96); MEAN PLT VOLUME 8.4 fl (7.5-11.1); MONO % 6.6 % (3.8-10.2); NEUT % 75.7 % (42.8-82.8); PLATELET COUNT 306 K/MM3 (134-434); RDW 14.3 % (11.6-15.6); WHITE BLOOD COUNT 10.2 K/mm3 (4.0-10.0)
[2017-09-18 08:28] LABS: ANION GAP 11 (8-16); BLOOD UREA NITROGEN 9 mg/dL (7-18); CALCIUM 8.3 mg/dL (8.5-10.1); CHLORIDE 107 mmol/L (98-107); CO2 25 mmol/L (21-32); CREATININE 0.4 mg/dL (0.55-1.02); GLUCOSE,RANDOM 84 mg/dL (74-106); PHOSPHOROUS 3.1 mg/dL (2.5-4.9); SODIUM 143 mmol/L (136-145)
[2017-09-18] MEDS ORDERED: PT OWN MED DRAWER 7, Y5N ONE ×2 (09:54→12:58)
[2017-09-18] MEDS: ERTAPENEM SODIUM 1 GM in SODIUM CHLORIDE 50 ML IVPB SCH (10:40)
[2017-09-18] MEDS: ENOXAPARIN NA (PORCINE) 40 MG/0.4 ML DISP.SYRIN SQ SCH (10:40)
[2017-09-18] MEDS: PANTOPRAZOLE SODIUM 40 MG VIAL IVPUSH SCH (10:40)
[2017-09-18] MEDS: ESCITALOPRAM OXALATE 10 MG TABLET (FP) PO SCH (10:40)
--- NOTE | 2017-09-18 15:28 | PN ---
Progress Note (short form) - Note Progress Note: surgery pt seen and examined. feels good. flatus. bm. hungry. afebrile, abd- soft, nt, incisions clean, jeannine serosanguinous Laboratory Tests 09/18/17 07:45 WBC 10.2 H A/P 1) Pod#4- full liquids, stop ivf, d/c butler, cont jeannine 2) tylenol 3) prophylaxis- lovenox, protonix, oob, spirometer 4) depression- lexapro 5) chronic diverticulitis with abscess- cont iv abx. follow path 6) hypokalemia- resolved 7) hypophosphatemis- resolved 8) hypomagnesemia- resolved possible d/c tomorrow
[2017-09-18] MEDS: ACETAMINOPHEN 325 MG TABLET (FP) PO PRN (21:47)
[2017-09-19 07:39] LABS: BASO % 0.7 % (0-2.0); EOS % 5.3 % (0-4.5); HEMATOCRIT 37.3 % (32.4-45.2); HEMOGLOBIN 12.2 GM/dL (10.7-15.3); LYMPH % 16.7 % (8-40); MCH 26.8 pg (25.7-33.7); MCHC 32.6 g/dl (32.0-36.0); MEAN CELL VOLUME 82.1 fl (80-96); MEAN PLT VOLUME 8.3 fl (7.5-11.1); MONO % 7.6 % (3.8-10.2); NEUT % 69.7 % (42.8-82.8); PLATELET COUNT 344 K/MM3 (134-434); RBC 4.55 M/mm3 (3.60-5.2)
[2017-09-19] MEDS ORDERED: PT OWN MED DRAWER 7, Y5N ONE (10:40)
[2017-09-19] MEDS: PANTOPRAZOLE SODIUM 40 MG VIAL IVPUSH SCH (10:42)
[2017-09-19] MEDS: ERTAPENEM SODIUM 1 GM in SODIUM CHLORIDE 50 ML IVPB SCH (10:42)
[2017-09-19] MEDS: ESCITALOPRAM OXALATE 10 MG TABLET (FP) PO SCH (10:43)
[2017-09-19] MEDS: ENOXAPARIN NA (PORCINE) 40 MG/0.4 ML DISP.SYRIN SQ SCH (10:43)
[2017-09-19] MEDS: ACETAMINOPHEN 325 MG TABLET (FP) PO PRN (10:46)
[2017-09-19 12:21] VITALS: BP 125/76; PULSE 89; TEMP 98.5
--- NOTE | 2017-09-19 14:36 | PATH ---
Surgical Pathology Report Patient Name: ABBIE GAO [facility]. Rec. #: [id number] /Age/Gender: 1975 (Age: 42) / F Account: [id number] Location: 4 SO PEDS/ADOL Taken: 09/14/2017 Received: 09/14/2017 Reported: 09/19/2017 Physicians: Fer Doll Specimen(s) Received RECTOSIGMOID COLON STITCH ARROYO DISTAL Clinical History Chronic diverticular disease Final Diagnosis COLON, RECTOSIGMOID, SEGMENTAL RESECTION: DIVERTICULOSIS AND DIVERTICULITIS WITH FOCAL PERIRECTAL ABSCESS FORMATION SUGGESTIVE OF PRIOR PERFORATION. Electronically Signed Tanmay Mai M.D. Gross Description Received in formalin labeled "rectosigmoid colon," is a 10.5 cm in length portion of colon with 2 stapled mucosal margins. There is a suture marking the distal aspect of the specimen, per the surgeon. The serosa is bowman-bull and smooth with abundant attached pericolonic adipose tissue. The mucosa is bowman with normal folds. No mucosal masses are identified. Sectioning reveals multifocal uncomplicated diverticula. Fuel Retrofitting Technician sections are submitted in 10 cassettes as follows: 1-proximal mucosal margin; 2-distal mucosal margin; 6-02-aixuroakiihdid diverticula. 09/15/201709/15/2017
--- NOTE | 2017-09-21 08:35 | DS ---
DATE OF ADMISSION: 09/13/2017 DATE OF DISCHARGE: 09/19/2017 ADMITTING DIAGNOSIS: Complicated diverticulitis. DISCHARGE DIAGNOSES: 1. Complicated diverticulitis. 2. Hypokalemia. 3. Hypophosphatemia. 4. Hypomagnesemia. BRIEF HISTORY: This is a 42-year-old female who was admitted to [facility] for surgical management of complicated diverticulitis. She was admitted to the hospital and given IV hydration and bowel preparation. On September 14, she underwent a laparoscopic low anterior resection which will be referenced in Dr. Fer Doll's operative report. At the time of surgery, there was noted to be a colonic abscess which was encountered. Because of this, the patient was kept in the hospital on intravenous antibiotics. Postoperatively, she did well. She developed hypokalemia, hypomagnesemia, and hypophosphatemia, which were all corrected. She is being discharged home today, September 19, tolerating a liquid diet, afebrile, with a normal white blood cell count. Her Delonte-Hobson drain has been removed. She will go home with a prescription for Augmentin 875 b.i.d. for 1 week. She also will have a new prescription for pain medication. She will resume her usual medications for constipation. She will follow with Dr. Doll in approximately 1-2 weeks' times to be evaluated for staple removal. She is okay to shower. She will not lift anything more than 20 pounds. She will stay on a liquid diet until Tuesday. She will likely require 2 weeks off from work. At the time of her discharge, her pathology report is unavailable. DO JAVIER SHOOK/[id number]
== END 2017-09-19 13:43 | disposition home or self-care (01) | DRG 330 ==
LOC: J4S 06:22 → EDSTATUS 11:45
PROVIDERS: ADMIT Surgery; ATTEND Surgery
PROC: 0DTP4ZZ Resection of Rectum, Percutaneous Endoscopic Approach (ICD-10-PCS; 2017-09-14)
PROC: 0DNU4ZZ Release Omentum, Percutaneous Endoscopic Approach (ICD-10-PCS; 2017-09-14)
PROC: 0W9J4ZZ Drainage of Pelvic Cavity, Percutaneous Endoscopic Approach (ICD-10-PCS; 2017-09-14)
PROC: 0D7 Gastrointestinal System, Dilation (ICD-10-PCS; 2017-09-14)
PROC: 3E1M38Z Irrigation of Peritoneal Cavity using Irrigating Substance, Percutaneous Approach (ICD-10-PCS; 2017-09-14)
PROC: 0DJD8ZZ Inspection of Lower Intestinal Tract, Via Natural or Artificial Opening Endoscopic (ICD-10-PCS; 2017-09-14)
PROC: 0DTN4ZZ Resection of Sigmoid Colon, Percutaneous Endoscopic Approach (ICD-10-PCS; principal; 2017-09-14 08:00)
DX: K57.20 Diverticulitis of large intestine with perforation and abscess without bleeding (principal); K66.0 Peritoneal adhesions (postprocedural) (postinfection); F32.9 Major depressive disorder, single episode, unspecified; E87.6 Hypokalemia; E83.39 Other disorders of phosphorus metabolism; E83.42 Hypomagnesemia
CPT/HCPCS: 36415; 80048; 82310; 83735; 84100; 84703; 85025; 85027; 88307-TC; 94010; 94760; 97116-GP; 97161-GP; 97163-GP

== ENCOUNTER 2024-04-11 04:32 | Day surgery (SDC) | payer BC ==
[2024-04-04 10:59] VITALS: BMI 45.4
[2024-04-11] MEDS ORDERED: LIDOCAINE HCL/PF 1% SDV 5ML VIAL ONE (07:29)
[2024-04-11] MEDS ORDERED: LIDOCAINE HCL/PF 2% SDV 5ML VIAL ONE (07:29)
[2024-04-11] MEDS ORDERED: POVIDONE-IODINE 5% OPHTHALMIC PREP 30 ML SOLUTION ONE (07:30)
[2024-04-11] MEDS ORDERED: BSS (NA/CA/MG/K) BALANCED SALT SOLUTION OPHTH SOLN 15 ML BOTTLE ONE (07:30)
[2024-04-11] MEDS ORDERED: BUPIVACAINE HCL/PF 0.75% 10 ML VIAL ONE (07:30)
[2024-04-11] MEDS ORDERED: ACETAMINOPHEN 325 MG TABLET (FP) PO PRN (07:40)
[2024-04-11] MEDS ORDERED: KETOROLAC TROMETHAMINE 0.5% EYE DROP 1 DROP DROPS ONE (08:55)
[2024-04-11] MEDS ORDERED: TROPICAMIDE 1% OPHTH SOLN 15 ML BOTTLE ONE (08:55)
[2024-04-11] MEDS ORDERED: OFLOXACIN 0.3% OPHTHALMIC SOLUTION 5 ML BOTTLE ONE (08:55)
[2024-04-11] MEDS ORDERED: CYCLOPENTOLATE HCL 1% OPHTH SOLN 2 ML BOTTLE ONE (08:55)
[2024-04-11] MEDS ORDERED: PHENYLEPHRINE 2.5% OPTHALMIC DROP 2ML BOTTLE ONE (09:06)
[2024-04-11] MEDS: TROPICAMIDE 1% OPHTH SOLN 15 ML BOTTLE OP SCH (09:10)
[2024-04-11] MEDS: KETOROLAC TROMETHAMINE 0.5% EYE DROP 1 DROP DROPS OP SCH (09:10)
[2024-04-11] MEDS: CYCLOPENTOLATE HCL 1% OPHTH SOLN 2 ML BOTTLE OP SCH (09:10)
[2024-04-11] MEDS: OFLOXACIN 0.3% OPHTHALMIC SOLUTION 5 ML BOTTLE OP SCH (09:10)
[2024-04-11] MEDS: PHENYLEPHRINE 2.5% OPHTH SOLN 15 ML BOTTLE OP SCH (09:10)
[2024-04-11 09:36] VITALS: RESP 20
[2024-04-11] MEDS ORDERED: MIDAZOLAM HCL 2 MG/2 ML SINGLE DOSE VIAL ONE (10:38)
[2024-04-11] MEDS ORDERED: PROPOFOL 20 ML ONE (10:38)
[2024-04-11] MEDS: LIDOCAINE HCL/PF 2% SDV 5ML VIAL INF ONE ×2 (10:56)
[2024-04-11] MEDS: BUPIVACAINE HCL/PF 0.75% 10 ML VIAL NR ONE ×2 (10:56)
[2024-04-11] MEDS: POVIDONE-IODINE 5% OPHTHALMIC PREP 30 ML SOLUTION OD ONE ×2 (10:57)
[2024-04-11] MEDS: BSS (NA/CA/MG/K) BALANCED SALT SOLUTION OPHTH SOLN 15 ML BOTTLE OD ONE ×2 (11:03)
[2024-04-11] MEDS: CHONDROITIN SU A/HYALUR SOD 1 KIT IO ONE ×3 (11:04)
[2024-04-11] MEDS: LIDOCAINE HCL 1% PRESERVATIVE FREE - 30ML VIAL IO ONE ×2 (11:04)
[2024-04-11] MEDS: EPINEPHrine/PF 1 MG/1 ML (1:1,000) AMPULE SQ ONE ×2 (11:12)
[2024-04-11 12:53] VITALS: BP 126/66; PULSE 88; TEMP 98.8
== END 2024-04-11 13:05 | disposition home or self-care (01) ==
LOC: JASU-SURG 04:32
PROVIDERS: ATTEND Ophthalmology
PROC: 08RK3JZ Replacement of Left Lens with Synthetic Substitute, Percutaneous Approach (ICD-10-PCS; principal; 2024-04-11 11:00)
DX: H26.9 Unspecified cataract (principal)
CPT/HCPCS: 81025; V2632